=== PATIENT | female | born 1970 | race Caucasian/White ===

== ENCOUNTER 2019-06-24 13:50 | Emergency (ER) | payer OTHER, MEDICAID, SELFPAY ==
[2019-06-24] VITALS (9 sets, daily range): BP systolic 127–188; BP diastolic 60–87; PULSE 72–89; RESP 14–20; TEMP 36.8–37.4; O2SAT 98–100
--- NOTE | 2019-06-24 14:02 | ED.RECABL ---
HPI - Recheck/Abnormal Lab/Rx General Chief Complaint: Recheck/Abnormal Lab/Rx Stated Complaint: blood transfusion Time Seen by Provider: 06/24/19 14:00 Source: patient Mode of arrival: Ambulatory Limitations: no limitations History of Present Illness HPI narrative: Patient is a 49-year-old female. For the past several months has been complaining of fatigue and headache in generalized malaise. Has been seeing her primary doctor. She stated that initially they thought that it was depression. The min going up on her Effexor. In April she stopped the Effexor and then had withdrawal symptoms. She went back on it then tapered herself off. She states that her symptoms have not been improving at all. Last week she had blood drawn by her primary provider. She was called today patellar to come to the emergency department for blood transfusion. She has been taking nonsteroidal anti-inflammatories because of her headache. She is unsure as to how much but she does feel like his been every day. She has had some blood in her stool. Both bright red blood and dark colored stools. Has never had a colonoscopy in the past. She is also complaining of abnormal vaginal bleeding. She states that for the month of March and April and also currently she has been having vaginal bleeding. She is not on control. Has not seen food checkers and cashiers supervisor. She states that her primary doctor told her that was perimenopausal symptoms. She had a blood transfusion 1 time in the past. His when she was 17 years old after a . Related Data Home Medications Medication Instructions Recorded Confirmed albuterol sulfate 2 puff INHALATION Q4-6H PRN 06/24/19 06/24/19 buspirone 10 mg PO BID 06/24/19 06/24/19 venlafaxine 75 mg PO DAILY 06/24/19 Allergies Allergy/AdvReac Type Severity Reaction Status Date / Time No Known Drug Allergies Allergy Verified 06/24/19 16:14 Review of Systems Constitutional Constitutional: Reports fatigue, Denies fever(s), Reports headache(s), Reports lethargy and Reports malaise ENT Ears, Nose, Mouth, and Throat: Reports headache(s) Cardiovascular Cardiovascular: Denies chest pain Respiratory Respiratory: Denies cough Gastrointestinal Gastrointestinal: Denies abdominal pain, Reports hematochezia, Denies change in stool character, Denies nausea and Denies vomiting Genitourinary Genitourinary: Denies dysuria and Reports vaginal discharge Integumentary/Breasts Skin/Breast: Denies lesions and Denies rash Neurologic Neurologic: Denies behavioral changes and Reports headache(s) Psychiatric Psychiatric: Denies behavioral changes Endocrine Endocrine: Reports fatigue Hematologic/Lymphatic Hematologic/Lymphatic: Denies easy bleeding and Denies easy bruising Patient History Medical History Headache (Acute) Social History marital status: lives independently: Yes Exam Initial Vital Signs Initial Vital Signs: Vital Signs Temperature 98.2 F 06/24/19 13:57 Pulse Rate 89 06/24/19 13:57 Respiratory Rate 20 06/24/19 13:57 Blood Pressure 188/87 H 06/24/19 13:57 Pulse Oximetry 98 06/24/19 13:57 Const General: cooperative, comfortable and well developed HENMT Head: normal to inspection and normocephalic Resp Effort & Inspection: normal respiratory effort Auscultation: clear to auscultation bilaterally Cardio Rate: regular rate Rhythm: regular rhythm Pulses: radial pulses present GI Palpation: soft Skin Lesions: no lesions Rashes: no rashes Neuro General: alert, awake and oriented x3 Cognition: normal cognition Speech: speech normal Extrem General: normal to inspection and capillary refill normal Psych Appearance: grossly normal and well kempt Scores GCS Kirsty coma scale eye opening: Spontaneous Kirsty coma scale verbal response: Orientated [place] coma scale motor response: Obey commands [place] coma scale total score: 15 Course Orders Ordered: ED Orders 06/24/19 14:20 Complete Blood Count AUTO DIFF Stat Comprehensive Metabolic Panel Stat Packed Cells Stat Pathologist Review (for CBC) Stat Type and Screen Stat Vital Signs Vital signs: Vital Signs - 8 hr 06/24/19 13:57 06/24/19 16:25 06/24/19 16:40 Temperature 98.2 F 99.3 F 99.4 F Pulse Rate 89 85 86 Respiratory Rate 20 15 16 Blood Pressure 188/87 H 135/65 Blood Pressure [Right Arm] 127/66 Pulse Oximetry 98 98 MDM - Recheck/Abnormal Lab/Rx Lab Data Attestation: I reviewed the patient's lab results. Result diagrams: 06/24/19 14:20 02/10/20 14:20 Labs: Lab Results 06/24/19 06/24/19 06/24/19 Range/Units 14:20 14:20 14:20 WBC 11.7 H (4.5-11.0) X10^3/uL RBC 4.19 (4.0-5.2) X10^6/uL Hgb 7.0 L (12.0-16.0) g/dL Hct 24.8 L (36-46) % MCV 59.1 L (80-100) fL MCH 16.6 L (26-34) PG MCHC 28.1 L (30-36) % RDW 20.1 H (11.6-14.8) % Plt Count 646 H (150-400) X10^3/uL Neut % (Auto) 67.7 (50-75) % Lymph % (Auto) 19.5 L (25-40) % Mcduffie % (Auto) 9.2 (3-14) % Eos % (Auto) 1.4 L (2-4) % Baso % (Auto) 2.2 H (0-2) % Neut # (Auto) 7900 H (6947-6300) /uL Lymph # (Auto) 2300 (7378-5431) /uL Mcduffie # (Auto) 1100 H (0-900) /uL Eos # (Auto) 200 (0-450) /uL Baso # (Auto) 300 H (0-100) /uL RBC Morphology See below Polychromasia 2+ H Hypochromasia 3+ H Poikilocytosis 1+ H Anisocytosis 3+ H Microcytosis 3+ H Sodium 139 (137-145) mmol/L Potassium 4.0 (3.4-5.1) mmol/L Chloride 102 (98-107) mmol/L Carbon Dioxide 25 (22-32) mmol/L BUN 11 (7-17) mg/dL Creatinine 0.90 (0.52-1.04) mg/dL Estimated GFR > 60.0 (>60) mL/min BUN/Creatinine Ratio 12.2 (6-22) Glucose 96 (70-100) mg/dL Calcium 9.8 (8.4-10.2) mg/dL Total Bilirubin 0.4 (0.2-1.3) mg/dL AST 39 H (14-36) IU/L ALT 19 (<35) IU/L Alkaline Phosphatase 100 (38-126) U/L Total Protein 8.2 (6.3-8.2) g/dL Albumin 4.7 (3.5-5.0) g/dL Globulin 3.5 (1.7-4.1) g/dL Albumin/Globulin Ratio 1.3 (1.0-2.8) Blood Type A Negative Antibody Screen Negative Crossmatch See Detail MDM Narrative Medical decision making narrative: Patient is not tachycardic. Not hypotensive. Has had fatigue for some time now. She is also complaining of potentially some GI bleeding with bright red blood in potentially some dark colored stools. She has never had a colonoscopy. She is also complaining of abnormal heavy menstrual bleeding. She is currently having bleeding. Patient was anemic today. Had a discussion with the patient regarding this. We did discuss the risks and benefits of a blood transfusion to include allergic reactions and potential infections. We also discuss the potential improvement in her symptoms after receiving the blood products. This discussion was had with her at bedside. After this discussion the patient did opt to have the blood transfusion. 2 units of packed red blood cells were ordered. Patient received the 1st unit without any problems. Second unit ordered. Care turned over to Dr. Jose at change of shift follow-up after 2nd unit administered. Discharge Plan Departure Patient Disposition: Home Clinical Impression: Anemia, Abnormal vaginal bleeding Instructions: Anemia, DI for Blood Transfusion Activity Restrictions/Additional Instructions: I recommend that you talk with her primary doctor about referrals to see both gastroenterology/surgery to discuss a colonoscopy and also to food checkers and cashiers supervisor to discuss further workup of your vaginal bleeding. Also recommend that you continue with the iron that you have at home. Return to the emergency department for any new or worsening symptoms Prescriptions: No Action venlafaxine 75 mg capsule,extended release 24hr 75 mg PO DAILY RF: 0 buspirone 10 mg tablet 10 mg PO BID RF: 0 albuterol sulfate 90 mcg/actuation HFA aerosol inhaler 2 puff INHALATION Q4-6H PRN (Reason: asthma) RF: 0
[2019-06-24 14:51] LABS: Add Manual Diff / Slide Review NO; Basophils Absolute Auto 300 /uL (0-100); Basophils Percent Auto 2.2 % (0-2); Eosinophils Absolute Auto 200 /uL (0-450); Eosinophils Percent Auto 1.4 % (2-4); Hematocrit 24.8 % (36-46); Lymphocytes Absolute Auto 2300 /uL (1100-4500); Lymphocytes Percent Auto 19.5 % (25-40); Mean Corpuscular HGB Conc 28.1 % (30-36); Mean Corpuscular Hemoglobin 16.6 PG (26-34); Mean Corpuscular Volume 59.1 fL (80-100); Monocytes Absolute Auto 1100 /uL (0-900); Monocytes Percent Auto 9.2 % (3-14); Neutrophils Absolute Auto 7900 /uL (1500-7000); Neutrophils Percent Auto 67.7 % (50-75); Platelet Count 646 X10^3/uL (150-400); Red Blood Cell Count 4.19 X10^6/uL (4.0-5.2); Red Cell Distribution Width 20.1 % (11.6-14.8); White Blood Cell Count 11.7 X10^3/uL (4.5-11.0)
[2019-06-24 14:57] LABS: Alanine Aminotransferase 19 IU/L (<35); Albumin 4.7 g/dL (3.5-5.0); Albumin Globulin Ratio 1.3 (1.0-2.8); Alkaline Phosphatase 100 U/L (38-126); Aspartate Aminotransferase 39 IU/L (14-36); BUN Creatinine Ratio 12.2 (6-22); Bilirubin Total 0.4 mg/dL (0.2-1.3); Blood Urea Nitrogen 11 mg/dL (7-17); Calcium 9.8 mg/dL (8.4-10.2); Carbon Dioxide 25 mmol/L (22-32); Chloride 102 mmol/L (98-107); Estimated Glomerular Filt Rate > 60.0 mL/min (>60); Globulin 3.5 g/dL (1.7-4.1); Glucose 96 mg/dL (70-100); HEMOLYSIS < 15 (0-50); Sodium 139 mmol/L (137-145); Total Protein 8.2 g/dL (6.3-8.2)
[2019-06-24 15:11] LABS: Anisocytosis 3+; Hypochromasia 3+; Microcytosis 3+
[2019-06-24 15:12] LABS: Poikilocytosis 1+; Polychromasia 2+
--- NOTE | 2019-06-24 19:21 | PC.NURSE ---
safe handoff from ramona at bedside. Blood infusing. Patient denies needs at this time.
--- NOTE | 2019-06-24 19:59 | PC.NURSE ---
patient reports feeling much better post transfufion. She states she is not lightheaded or fatigued feeling when upright and walking. Patient ambulated self to restroom.
--- NOTE | 2019-06-24 21:02 | PC.NURSE ---
drawn by Mercedez dominguez
[2019-06-24 21:18] LABS: Hematocrit 29.5 % (36-46)
--- NOTE | 2019-06-24 22:02 | PC.NURSE ---
provider notified of resulted repeat H&H. Provider reviewed labs and od'd discharge.
== END 2019-06-24 22:06 | disposition home or self-care (01) ==
PROVIDERS: Emergency Medicine; Emergency Provider Emergency Medicine
DX: D64.9 Anemia, unspecified (principal); N93.9 Abnormal uterine and vaginal bleeding, unspecified
CPT/HCPCS: 36415; 36430; 80053; 85014; 85018; 85025; 86850; 86900; 86901; 99284; P9016

== ENCOUNTER 2019-07-05 07:47 | Day surgery (SDC) | payer OTHER, MEDICAID, SELFPAY ==
[2019-07-03 14:40] VITALS: BMI 28.8
[2019-07-05] VITALS (8 sets, daily range): BP systolic 121–152; BP diastolic 61–79; PULSE 60–77; RESP 13–20; TEMP 36.2–37.1; O2SAT 93–100; BMI 28.8
--- NOTE | 2019-07-05 | PATH_ITS ---
[facility] Accession Number: [id number] . 01 Material submitted: . PART A: endometrium - ENDOMETRIAL BIOPSY PART B: uterine adnexa - PROLAPSED UTERINE FIBROID . 02 Diagnosis: A. Endometrium, Biopsy: Secretory endometrium with no diagnostic abnormality. Negative for atypical hyperplasia or malignancy. . B. Prolapsed Uterine Fibroid, Excision: Compatible with leiomyoma. Adenomyosis. Negative for atypical hyperplasia or malignancy. MRV 07/08/2019 1326 Local . 02 Electronically signed: . Abdelrahman Petty MD, PhD, Pathologist NPI- [id number] . 01 Gross description: . (A) Received in formalin, labeled endometrial biopsy, are multiple fragments of red-brown tissue (2.3 x 2.0 x 0.3 cm in aggregate). Filtered and entirely submitted in cassette A1. (B) Received in formalin, labeled prolapsed uterine fibroid, is a baca sanchez, firm resected nodule (7 g, 3.2 x 2.5 x 1.2 cm) with a sanchez-white, solid, cystic cut surface. The cavities (0.1-0.3 cm) contain clear, colorless, gelatinous, and brown solid soft material. The resection margin is inked blue. [employer] serial sections submitted in cassettes B1 and B2. ([id number]) /ROBIN 07/06/2019 0935 Local . 02 Pathologist provided ICD-10: N92.0, D25.9, N80.0 . 02 CPT . 044061, 616916 Performed at: 01 [facility] [address] [place] [address] [address] [facility], [place], [place] [id number] MD Vinicio Rushing MD Phone: [phone] Performed at: 02 [facility] [place] [address] [place] [id number] MD Fernanda Burns MD Phone: [phone]
[2019-07-05] MEDS: LACTATED RINGERS 1,000 ML 100 ML IV (08:41)
[2019-07-05 08:46] LABS: Add Manual Diff / Slide Review NO; Basophils Absolute Auto 200 /uL (0-100); Basophils Percent Auto 2.1 % (0-2); Eosinophils Absolute Auto 400 /uL (0-450); Eosinophils Percent Auto 4.4 % (2-4); Hematocrit 38.6 % (36-46); Hemoglobin 12.1 g/dL (12.0-16.0); Lymphocytes Absolute Auto 1700 /uL (1100-4500); Lymphocytes Percent Auto 21.8 % (25-40); Mean Corpuscular HGB Conc 31.3 % (30-36); Mean Corpuscular Hemoglobin 22.3 PG (26-34); Mean Corpuscular Volume 71.2 fL (80-100); Monocytes Absolute Auto 700 /uL (0-900); Monocytes Percent Auto 8.6 % (3-14); Neutrophils Absolute Auto 5000 /uL (1500-7000); Neutrophils Percent Auto 63.1 % (50-75); Platelet Count 550 X10^3/uL (150-400); Red Blood Cell Count 5.42 X10^6/uL (4.0-5.2); White Blood Cell Count 7.9 X10^3/uL (4.5-11.0)
--- NOTE | 2019-07-05 08:50 | PM.PREOP ---
Pre-operative Note Interval Note History & Physical reviewed/Exam performed by Physician: Yes Changes to H&P: No
[2019-07-05 09:02] LABS: Anisocytosis 2+; Dimorphic RBC 2
--- NOTE | 2019-07-05 10:03 | SUR.OPER ---
Lithotomy on padded OR bed. Summit View Pad Positioner under torso. Head on pillow, arms padded and tucked at sides. Legs secured in padded yellow fins stirrups.
--- NOTE | 2019-07-05 10:39 | P.OP_ITS ---
Operative Date/Time/Diagnoses Date of procedure: 07/05/19 Time of procedure: 10:39 Pre-op diagnosis: prolapsing uterine fibroid Post-op diagnosis: same Procedure & Clinicians Procedure: Exam under anesthesia, operative hysteroscopy, endometrial biopsy, insertion of Mirena IUD Same procedure as scheduled: No Indications: Abnormal uterine bleeding, prolapsing uterine fibroid. Surgeon: Eliza Almanzar Pastry Assistant: Sheryl Vargas Anesthesia Type: General Operative Notes Findings: 3.5 cm uterine fibroid prolapsing through the cervix, attached to posterior lower uterine segment by long vascular stalk. Fluffy benign-appearing endometrium throughout rest endometrial cavity, though no signs of malignancy. Otherwise normal vulva, vagina, cervix, uterus. Closure Type: not applicable Specimen(s): other (Uterine fibroid, endometrial biopsy) Estimated Blood Loss (mL): 25 Procedure in detail: After proper consents were obtained, the patient was taken to the operating room. General anesthesia was obtained and she was placed in the dorsal lithotomy position and prepped and draped in the usual sterile fashion. An exam under anesthesia was obtained, and the fibroid was palpably free of attachment to the cervix. The bladder was straight cathed, and a weighted retractor inserted into the vagina. The prolapsing fibroid was visualized, and grasped with a single-tooth tenaculum. A Bovie was used to amputate the bulk of the fibroid to allow for visualization of the entire c ervix. The cervix was grasped with a single-tooth tenaculum on the anterior lip and gently dilated to 8 mm with Hegar dilators, and the operative hysteroscope inserted gently into the uterus. The above findings were visualized, and the loop cautery device used to amputate the rest of the stalk of the fibroid and cauterize the area of attachment. Once hemostasis was achieved, the hysteroscope was removed from the uterus. As previously discussed with the patient, an endometrial biopsy rather than dilation curettage was performed. A Mirena IUD was then inserted into the uterus using that insertion device in the usual fashion. The uterus had sounded to 9 cm, and the strings were cut to 2 cm. The single-tooth tenaculum was removed from the anterior lip of the cervix, and spontaneous hemostasis was visualized at the tenaculum sites. The weighted speculum was removed from the vagina. The patient had mild scant uterine bleeding. Patient was taken to the PACU in stable condition. All counts were correct. IV fluids: 500 cc Fluid deficit: 150 cc of sorbitol Urine output: 25 cc of clear urine at the beginning of the case. Complications: none Post-operative Condition: stable Disposition: PACU Plan for aftercare: Nothing in the vagina for 2 weeks. Patient and spouse counseled on postoperative precautions for return, including heavy uterine bleeding. Patient to follow up in clinic in 1-2 weeks.
--- NOTE | 2019-07-05 11:38 | SUR.PHASEII ---
pt denies any pain or discomfort. No complaints voiced. pt d/abbe with . Pt very pleasant and cooperative.
== END 2019-07-05 11:48 | disposition home or self-care (01) ==
PROVIDERS: PCP Family Medicine Geriatric Medicine; Referring Provider Obstetrics & Gynecology; Visit Provider Obstetrics & Gynecology
PROC: 0UT94ZL Resection of Uterus, Supracervical, Percutaneous Endoscopic Approach (ICD-10-PCS; CPT 58561; principal; 2019-07-05 09:15)
DX: D25.9 Leiomyoma of uterus, unspecified (principal); Z30.430 Encounter for insertion of intrauterine contraceptive device; N80.0 Endometriosis of uterus
CPT/HCPCS: 58561; 58300; 85025; 86850; 86900; 86901; J1100; J1885; J2250; J2405; J2704; J3010; J7298

== ENCOUNTER 2019-07-06 09:08 | Emergency (ER) | payer OTHER, MEDICAID, SELFPAY ==
[2019-07-06] VITALS (7 sets, daily range): BP systolic 131–181; BP diastolic 61–84; PULSE 59–84; RESP 15–17; TEMP 36.4–36.8; O2SAT 98–100
--- NOTE | 2019-07-06 10:27 | ED_ITS ---
HPI - Fever General Chief Complaint: Fever Stated Complaint: post surgery, fever, vomiting, sent by provider Time Seen by Provider: 07/06/19 09:10 Source: patient Mode of arrival: Ambulatory Limitations: no limitations History of Present Illness HPI Narrative: 41-year-old female nonsmoker with history of asthma presents with a chief complaint of about 12 hours of fever, chills, nausea, vomiting and diarrhea as well as crampy pelvic pain. Yesterday she had a gynecologic procedure for removal of fibroid and insertion of IUD. She contacted her surgeon and was directed to the emergency department for evaluation. Her pain is worse when she moves and improves with rest. She admits to occasional spotting but no significant vaginal bleeding or discharge. She has no dysuria, frequency or urgency MD complaint: fever Onset (ago): hour(s) Maximum Temperature: 100.6 F Temperature Source: oral Context: recent procedure Associated symptoms: chills, myalgias, headache, nausea, vomiting and diarrhea Related Data Home Medications Medication Instructions Recorded Confirmed albuterol sulfate 2 puff INHALATION Q4-6H PRN 06/24/19 06/26/19 buspirone 10 mg PO BID 06/24/19 06/26/19 venlafaxine 75 mg PO DAILY 06/24/19 06/26/19 lorazepam 0.5 mg tablet 0.5 mg PO DAILY PRN 06/26/19 06/26/19 Previous Rx's Medication Instructions Recorded doxycycline hyclate 100 mg PO BID #28 tab 07/06/19 metronidazole [Flagyl] 500 mg PO BID 14 Days #28 tab 07/06/19 Allergies Allergy/AdvReac Type Severity Reaction Status Date / Time No Known Drug Allergies Allergy Verified 06/26/19 13:21 Review of Systems Constitutional Constitutional: Reports chills, Denies fatigue, Reports fever(s), Denies frequent falls, Denies lethargy and Denies weakness Eyes Eyes: Denies change in vision, Denies eye discharge, Denies irritation and Denies loss of vision ENT Ears, Nose, Mouth, and Throat: Denies change in voice, Denies dizziness, Denies neck pain, Denies sore throat and Denies throat swelling Cardiovascular Cardiovascular: Denies chest pain, Denies irregular heart rhythm, Denies lig htheadedness, Denies palpitations, Denies dyspnea, Denies dyspnea on exertion and Denies orthopnea Respiratory Respiratory: Denies cough, Denies dyspnea, Denies dyspnea on exertion and Denies wheezing Gastrointestinal Gastrointestinal: Denies abdominal pain, Denies change in bowel habits, Reports diarrhea, Reports nausea and Reports vomiting Genitourinary Genitourinary: Denies hematuria, Denies flank pain, Denies urinary incontinence and Denies urinary urgency Musculoskeletal Musculoskeletal: Denies back pain, Denies muscle weakness, Denies neck pain, Denies numbness and Denies tingling Integumentary/Breasts Skin/Breast: Denies pruritus, Denies erythema, Denies rash and Denies wounds Neurologic Neurologic: Denies behavioral changes, Denies confusion, Denies dizziness, Denies frequent falls, Denies loss of vision, Denies numbness, Denies tingling and Denies weakness Psychiatric Psychiatric: Denies anxiety, Denies behavioral changes, Denies confusion, Denies depression, Denies homicidal ideation and Denies suicidal ideation Endocrine Endocrine: Denies fatigue, Denies flushing and Denies palpitations Hematologic/Lymphatic Hematologic/Lymphatic: Denies easy bruising Allergic/Immunologic Allergic/Immunologic: Denies urticaria, Denies throat swelling and Denies wheezi ng Patient History Medical History Depression (Acute) Headache (Acute) Menorrhagia (Acute) Surgical History Previous section (Acute) Social History marital status: household members: spouse lives independently: Yes Smoking Status: Never smoker alcohol intake: never Smoking Status: Never smoker Exam Narrative Exam Narrative: GENERAL: [41] year old patient appears stated age. Well- nourished, well-developed patient, in mild distress. HEAD: Atraumatic. Normocephalic. EYES: Pupils equal round and reactive. Extraocular motions intact. No scleral icterus. No injection or drainage. ENT: Nose without bleeding, purulent drainage. Throat without erythema, tonsillar hypertrophy or exudate. Airway patent. NECK: Trachea midline. Non tender CARDIOVASCULAR: Regular rate and rhythm without murmurs, gallops, or rubs. RESPIRATORY: Clear to auscultation. Breath sounds equal bilaterally. No wheezes, rales, or rhonchi. GASTROINTESTINAL: Abdomen soft, mild suprapubic tenderness, nondistended. EXTREMITIES: No edema or joint tenderness. BACK: Nontender without deformity or crepitance. No flank tenderness. NEURO: AOx3. SKIN: No rash or erythema of visible areas Initial Vital Signs Initial Vital Signs: Vital Signs Temperature 98.2 F 07/06/19 10:10 Pulse Rate 84 07/06/19 10:10 Respiratory Rate 16 07/06/19 10:10 Blood Pressure 181/84 H 07/06/19 10:10 Pulse Oximetry 99 07/06/19 10:10 Course Course Course Narrative: Call to patient's control and recovery special tactics nearly immediately upon patient arrival, we discussed the workup and a CT of abdomen and pelvis with IV contrast is requested. Orders Ordered: ED Orders 07/06/19 10:34 Blood Culture Stat 07/06/19 10:38 CT abdomen pelvis w con Stat 07/06/19 10:40 Basic Metabolic Panel Stat Complete Blood Count AUTO DIFF Stat Lactate (Lactic Acid) Stat 07/06/19 13:05 Urine Microscopic Stat Discontinued Medications Sodium Chloride (Normal Saline 0.9%) 1,000 mls @ 1,000 mls/hr IV BOLUS ONE Stop: 07/06/19 11:33 Last Infusion: 07/06/19 12:54 Dose: 0 mls/hr Documented by: Admin: 07/06/19 11:16 Dose: 1,000 mls/hr Documented by: LUCIE Ceftriaxone Sodium/Dextrose (Rocephin) 1 gm in 50 mls @ 100 mls/hr IV NOW ONE Stop: 07/06/19 11:07 Last Infusion: 07/06/19 12:54 Dose: 0 mls/hr Documented by: Admin: 07/06/19 11:27 Dose: 100 mls/hr Documented by: FELISHA Ketorolac Tromethamine (Toradol) 15 mg IV NOW ONE Stop: 07/06/19 10:41 Last Admin: 07/06/19 11:27 Dose: 15 mg Documented by: FELISHA Ondansetron HCl (Zofran) 4 mg IV Q4HR PRN PRN Reason: Nausea And Vomiting Last Admin: 07/06/19 11:27 Dose: 4 mg Documented by: FELISHA Vital Signs Vital signs: Vital Signs - 8 hr 07/06/19 11:05 07/06/19 12:10 07/06/19 12:11 Temperature 97.6 F Pulse Rate 63 63 59 L Respiratory Rate 16 16 Blood Pressure [Right Arm] 145/66 H 145/66 H 142/68 H Pulse Oximetry 100 100 100 07/06/19 12:30 07/06/19 13:01 07/06/19 14:10 Temperature Pulse Rate 60 64 61 Respiratory Rate 17 15 15 Blood Pressure [Right Arm] 132/61 147/68 H 131/66 Pulse Oximetry 100 100 98 MDM - Fever Lab Data Result diagrams: 07/06/19 10:40 07/06/19 10:40 Labs: Lab Results 07/06/19 07/06/19 07/06/19 Range/Units 10:40 10:40 10:40 WBC 14.8 H D (4.5-11.0) X10^3/uL RBC 4.84 (4.0-5.2) X10^6/uL Hgb 10.9 L (12.0-16.0) g/dL Hct 34.8 L (36-46) % MCV 71.8 L (80-100) fL MCH 22.5 L (26-34) PG MCHC 31.4 (30-36) % RDW 34.9 H (11.6-14.8) % Plt Count 553 H (150-400) X10^3/uL Neut % (Auto) 76.1 H (50-75) % Lymph % (Auto) 14.4 L (25-40) % [place] % (Auto) 8.0 (3-14) % Eos % (Auto) 0.2 L (2-4) % Baso % (Auto) 1.3 (0-2) % Neut # (Auto) 27062 H (6782-0366) /uL Lymph # (Auto) 2100 (2362-9976) /uL [place] # (Auto) 1200 H (0-900) /uL Eos # (Auto) 0 (0-450) /uL Baso # (Auto) 200 H (0-100) /uL RBC Morphology See below Hypochromasia 2+ H Poikilocytosis 2+ H Anisocytosis 3+ H Target Cells 1+ H Tear Drop Cells 2+ H Sodium 143 (137-145) mmol/L Potassium 3.5 (3.4-5.1) mmol/L Chloride 108 H (98-107) mmol/L Carbon Dioxide 22 (22-32) mmol/L BUN 7 (7-17) mg/dL Creatinine 0.50 L (0.52-1.04) mg/dL Estimated GFR > 60.0 (>60) mL/min BUN/Creatinine Ratio 14.0 (6-22) Glucose 95 (70-100) mg/dL Lactate 1.5 (0.7-2.1) mmol/L Calcium 9.7 (8.4-10.2) mg/dL Urine RBC (0-5/HPF) Urine WBC (0-5/HPF) Ur Squamous Epith Cells (0-5/HPF) Urine Bacteria (None) Ur Culture Indicated? 07/06/19 Range/Units 13:05 WBC (4.5-11.0) X10^3/uL RBC (4.0-5.2) X10^6/uL Hgb (12.0-16.0) g/dL Hct (36-46) % MCV (80-100) fL MCH (26-34) PG MCHC (30-36) % RDW (11.6-14.8) % Plt Count (150-400) X10^3/uL Neut % (Auto) (50-75) % Lymph % (Auto) (25-40) % [place] % (Auto) (3-14) % Eos % (Auto) (2-4) % Baso % (Auto) (0-2) % Neut # (Auto) (0416-5803) /uL Lymph # (Auto) (6427-4564) /uL [place] # (Auto) (0-900) /uL Eos # (Auto) (0-450) /uL Baso # (Auto) (0-100) /uL RBC Morphology Hypochromasia Poikilocytosis Anisocytosis Target Cells Tear Drop Cells Sodium (137-145) mmol/L Potassium (3.4-5.1) mmol/L Chloride (98-107) mmol/L Carbon Dioxide (22-32) mmol/L BUN (7-17) mg/dL Creatinine (0.52-1.04) mg/dL Estimated GFR (>60) mL/min BUN/Creatinine Ratio (6-22) Glucose (70-100) mg/dL Lactate (0.7-2.1) mmol/L Calcium (8.4-10.2) mg/dL Urine RBC 5-10/hpf H (0-5/HPF) Urine WBC 5-10/hpf H (0-5/HPF) Ur Squamous Epith Cells 10-30 /hpf H (0-5/HPF) Urine Bacteria None seen (None) Ur Culture Indicated? Cult not indicated Urine Dip Bedside Urine Glucose Negative Bedside Urine Bilirubin - Negative Bedside Urine Ketone - Negative Urine Specific [place] 1.005 Bedside Urine Occult Blood +++ Bedside Urine pH 7.0 Bedside Urine Protein +/- 15 Bedside Urine Urobilinogen - Negative Bedside Urine Nitrite - Negative Bedside Urine Leukocytes +/- [address] scan - abdomen/pelvis: Radiologist's Impression: 19 Sanjeve Bustillo DO Find Patient Imaging - Mimi Sanford 49 F 1970 ACTIVITY DATE EXAM STATUS AUTHOR 07/06/19 10:38 [place] [address] [place] Scan Report Signed Patient: Mimi Sanford [facility]#: [id number] : 1970Acct:[id number] Age/Sex: 49 / FDate of Service: 07/06/19 Loc: ED Accession Number: [id number] Procedure: CT abdomen pelvis w con Ordering Provider: Sanjeev Bustillo D.O. PROCEDURE: CT ABDOMEN PELVIS W CON INDICATIONS: pain, fever, chills, pain, procedure yesterday TECHNIQUE: After the administration of oral and intravenous contrast, 5 mm thick sections acquired from the diaphragms to the symphysis. 5 mm thick coronal and sagittal reformats were performed. For radiation dose reduction, the following was used: automated exposure control, adjustment of mA and/or kV according to patient size. COMPARISON: [facility], US, US PELVIC COMPLETE, 06/26/2019, 13:54. FINDINGS: Image quality: Diagnostic. ABDOMEN: Lung bases: Lung bases are clear. Heart size is normal. Solid organs: Liver is normal in size and enhancement. Gallbladder is not enlarged or adequately evaluated. However, there is questionable nodularity to the wall of the gallbladder. Biliary system is non-dilated. Pancreas enhances normally. Spleen is normal in size and enhancement. No adrenal nodules. Kidneys are normal in size and enhancement, without hydronephrosis. Peritoneum and bowel: The stomach is unremarkable. The small bowel loops are nondilated. A normal amount of stool seen within the colon. The appendix is well- visualized and normal. No free fluid a left ventricular collection is seen within the abdomen. No free air is evident. Nodes and vessels: No retroperitoneal or mesenteric adenopathy. Aorta and inferior vena cava are normal in caliber. Mild aortic atherosclerosis is present. There is also iliac artery atherosclerosis. Bones: No acute fracture or suspicious osseous lesion is identified. PELVIS: Genitourinary: Bladder wall thickness is normal. The uterus and ovaries are not enlarged. However, they are not well evaluated on CT. An intrauterine contraceptive device is identified, which be appropriate lead position within the endometrial cavity. A small amount of fluid is contained within the endometrial cavity. An exophytic lesion along the posterior aspect of the uterus is present that measures up to 3.2 cm. The ovaries are not enlarged. A dominant follicle in the left ovary measures 1.4 cm. Miscellaneous: No inguinal hernias or adenopathy. No free fluid or loculated fluid collection is appreciated. There is no free air. Age-appropriate degenerative changes of the lumbar spine are most pronounced at the lumbosacral junction. Bones: No suspicious bony lesions. No vertebral body compression fractures. IMPRESSION: 1. The intrauterine contraceptive device appears to be a properly positioned within the endometrial cavity. 2. Minimal fluid versus blood within the endometrial cavity may be related to recent IUD placement. Please correlate clinically. 3. No intraperitoneal fluid collections or free fluid. 4. Moderate-sized subserosal/exophytic fibroid on the posterior uterus. 5. Slight nodular appearance to the wall of the gallbladder is nonspecific. A gallbladder ultrasound is recommended on a non-emergent basis to exclude the possibility of adenomyomatosis. Dictated by: Emile Kraft M.D. on 07/06/2019 at 11:13 Approved by: Emile Kraft M.D. on 07/06/2019 at 11:22 Discharge Plan Departure Patient Disposition: Home Clinical Impression: Pelvic pain, Acute pelvic inflammatory disease (PID) Discharge Date/Time: 07/06/19 14:30 Instructions: DI for Pelvic Inflammatory Disease Activity Restrictions/Additional Instructions: *You have been diagnosed with [ nausea, vomiting, diarrhea and possible pelvic inflammatory disease ] *What to do: *Take medications as directed: prescriptions sent to [facility] in [place] at your request *Follow up with your primary care provider in 2-3 days, call for an appointment. Let them know you were seen in the Emergency Department and that we ask that you be seen in follow up *Return to ER if you should have any new, worsening or concerning symptoms Prescriptions: New doxycycline hyclate 100 mg tablet 100 mg PO BID Qty: 28 RF: 0 metronidazole [Flagyl] 500 mg tablet 500 mg PO BID 14 Days Qty: 28 RF: 0 No Action lorazepam 0.5 mg tablet 0.5 mg PO DAILY PRNRF: 0 venlafaxine 75 mg capsule,extended release 24hr 75 mg PO DAILY RF: 0 buspirone 10 mg tablet 10 mg PO BID RF: 0 albuterol sulfate 90 mcg/actuation HFA aerosol inhaler 2 puff INHALATION Q4-6H PRN (Reason: asthma) RF: 0 Referrals: Susy Stanley MD [Primary Care Provider] -
--- NOTE | 2019-07-06 10:36 | PC.NURSE ---
s/p cyst removal in cervix and uterus,and IUD insertion. developed fever,nausea,vomiting,diarrhea. denies chills. with chronic headache,but now worsen, denies visual changes.
--- NOTE | 2019-07-06 10:38 | DI.CT.S_ITS ---
PROCEDURE: CT ABDOMEN PELVIS W CON INDICATIONS: pain, fever, chills, pain, procedure yesterday TECHNIQUE: After the administration of oral and intravenous contrast, 5 mm thick sections acquired from the diaphragms to the symphysis. 5 mm thick coronal and sagittal reformats were performed. For radiation dose reduction, the following was used: automated exposure control, adjustment of mA and/or kV according to patient size. COMPARISON: [facility], US, US PELVIC COMPLETE, 06/26/2019, 13:54. FINDINGS: Image quality: Diagnostic. ABDOMEN: Lung bases: Lung bases are clear. Heart size is normal. Solid organs: Liver is normal in size and enhancement. Gallbladder is not enlarged or adequately evaluated. However, there is questionable nodularity to the wall of the gallbladder. Biliary system is non-dilated. Pancreas enhances normally. Spleen is normal in size and enhancement. No adrenal nodules. Kidneys are normal in size and enhancement, without hydronephrosis. Peritoneum and bowel: The stomach is unremarkable. The small bowel loops are nondilated. A normal amount of stool seen within the colon. The appendix is well-visualized and normal. No free fluid a left ventricular collection is seen within the abdomen. No free air is evident. Nodes and vessels: No retroperitoneal or mesenteric adenopathy. Aorta and inferior vena cava are normal in caliber. Mild aortic atherosclerosis is present. There is also iliac artery atherosclerosis. Bones: No acute fracture or suspicious osseous lesion is identified. PELVIS: Genitourinary: Bladder wall thickness is normal. The uterus and ovaries are not enlarged. However, they are not well evaluated on CT. An intrauterine contraceptive device is identified, which be appropriate lead position within the endometrial cavity. A small amount of fluid is contained within the endometrial cavity. An exophytic lesion along the posterior aspect of the uterus is present that measures up to 3.2 cm. The ovaries are not enlarged. A dominant follicle in the left ovary measures 1.4 cm. Miscellaneous: No inguinal hernias or adenopathy. No free fluid or loculated fluid collection is appreciated. There is no free air. Age-appropriate degenerative changes of the lumbar spine are most pronounced at the lumbosacral junction. Bones: No suspicious bony lesions. No vertebral body compression fractures. IMPRESSION: 1. The intrauterine contraceptive device appears to be a properly positioned within the endometrial cavity. 2. Minimal fluid versus blood within the endometrial cavity may be related to recent IUD placement. Please correlate clinically. 3. No intraperitoneal fluid collections or free fluid. 4. Moderate-sized subserosal/exophytic fibroid on the posterior uterus. 5. Slight nodular appearance to the wall of the gallbladder is nonspecific. A gallbladder ultrasound is recommended on a non-emergent basis to exclude the possibility of adenomyomatosis. Dictated by: Emile Kraft M.D. on 07/06/2019 at 11:13 Approved by: Emile Kraft M.D. on 07/06/2019 at 11:22
[2019-07-06] MEDS: SODIUM CHLORIDE 0.9% 1,000 ML 1000 ML IV (11:16)
[2019-07-06] MEDS: ONDANSETRON 4 MG/2 ML INJ IV (11:27)
[2019-07-06] MEDS: KETOROLAC 60 MG/2 ML VIAL 15 MG IV (11:27)
[2019-07-06] MEDS: CEFTRIAXONE 1 GM/50 ML FROZ.PIGGY IV (11:27)
[2019-07-06 11:32] LABS: Lactate (Lactic Acid) 1.5 mmol/L (0.7-2.1)
[2019-07-06 11:33] LABS: Blood Urea Nitrogen 7 mg/dL (7-17); Calcium 9.7 mg/dL (8.4-10.2); Carbon Dioxide 22 mmol/L (22-32); Chloride 108 mmol/L (98-107); Estimated Glomerular Filt Rate > 60.0 mL/min (>60); Glucose 95 mg/dL (70-100); HEMOLYSIS < 15 (0-50); Potassium 3.5 mmol/L (3.4-5.1); Sodium 143 mmol/L (137-145)
[2019-07-06 11:39] LABS: Add Manual Diff / Slide Review NO; Basophils Absolute Auto 200 /uL (0-100); Basophils Percent Auto 1.3 % (0-2); Eosinophils Absolute Auto 0 /uL (0-450); Eosinophils Percent Auto 0.2 % (2-4); Hematocrit 34.8 % (36-46); Hemoglobin 10.9 g/dL (12.0-16.0); Lymphocytes Absolute Auto 2100 /uL (1100-4500); Lymphocytes Percent Auto 14.4 % (25-40); Mean Corpuscular HGB Conc 31.4 % (30-36); Mean Corpuscular Hemoglobin 22.5 PG (26-34); Mean Corpuscular Volume 71.8 fL (80-100); Monocytes Absolute Auto 1200 /uL (0-900); Neutrophils Absolute Auto 11200 /uL (1500-7000); Neutrophils Percent Auto 76.1 % (50-75); Platelet Count 553 X10^3/uL (150-400); Red Blood Cell Count 4.84 X10^6/uL (4.0-5.2); Red Cell Distribution Width 34.9 % (11.6-14.8); White Blood Cell Count 14.8 X10^3/uL (4.5-11.0)
[2019-07-06 12:32] LABS: Anisocytosis 3+; Poikilocytosis 2+; Tear Drop Cells 2+
[2019-07-06 12:33] LABS: Hypochromasia 2+; Target Cells 1+
[2019-07-06 13:49] LABS: Bacteria Urine None Seen
--- NOTE | 2019-07-06 14:11 | PM.CN ---
History of Present Illness Consult details Date Patient Seen: 07/06/19 Time Patient Seen: 14:12 Chief complaint: post surgery, fever, vomiting, sent by provider Reason for consult: 24 hours s/p hysteroscopy Requesting provider: Sanjeev Bustillo Narrative: This patient is a 49-year-old para 1, 24 hour status post operative hysteroscopy for prolapsing uterine fibroid with endometrial biopsy and placement of Mirena IUD at end of procedure. The procedure was uncomplicated with no signs of perforation, the patient recovered appropriately went home. However, the patient reports that early this morning, she woke up feeling generally unwell, with nausea and 1 bout of emesis. She also reports diarrhea and 1 low-grade fever at home. The patient denies significant vaginal bleeding, ongoing fevers or chills, abdominal pain, myalgias, or ongoing GI complaints in the emergency room. The patient has a history otherwise significant for thyroid derangement, and a known history of hypertension evident at prior clinic visits. Meds Home Medications and Allergies Home Medications Medication Instructions Recorded Confirmed Type albuterol sulfate 2 puff INHALATION Q4-6H PRN 06/24/19 06/26/19 History buspirone 10 mg PO BID 06/24/19 06/26/19 History venlafaxine 75 mg PO DAILY 06/24/19 06/26/19 History lorazepam 0.5 mg tablet 0.5 mg PO DAILY PRN 06/26/19 06/26/19 History doxycycline hyclate 100 mg PO BID #28 tab 07/06/19 Rx metronidazole [Flagyl] 500 mg PO BID 14 Days #28 tab 07/06/19 Rx Allergies Allergy/AdvReac Type Severity Reaction Status Date / Time No Known Drug Allergies Allergy Verified 06/26/19 13:21 Review of Systems Constitutional Constitutional: Reports system reviewed and no additional complaints, except as documented Cardiovascular Cardiovascular: Reports system reviewed; no additional complaints, except as documented Respiratory Respiratory: Reports system reviewed and no additional complaints, except as documented Gastrointestinal Gastrointestinal: Reports as per HPI Genitourinary Genitourinary: Reports as per HPI Comments: Mild spotting and cramping Exam Vital Signs (past 8 hours): - 07/06/19 10:10 07/06/19 12:10 Temperature 98.2 F 97.6 F Pulse Rate 84 63 Respiratory Rate 16 Blood Pressure 181/84 H Blood Pressure [Right Arm] 145/66 H Pulse Oximetry 99 100 Oxygen Delivery Method Room Air Const General: cooperative, healthy appearing, comfortable and well groomed Other: Patient sitting in chair in your room during consult, has changed back in the street clothes. GI Inspection: non-distended Palpation: soft, No guarding and No tender Other: Patient declines exam. Skin General: no rashes or lesions noted Objective Labs Result Diagrams: 07/06/19 10:40 07/06/19 10:40 Labs: Laboratory Results - last 24 hr 07/06/19 07/06/19 07/06/19 10:40 10:40 10:40 WBC 14.8 H D RBC 4.84 Hgb 10.9 L Hct 34.8 L MCV 71.8 L MCH 22.5 L MCHC 31.4 RDW 34.9 H Plt Count 553 H Neut % (Auto) 76.1 H Lymph % (Auto) 14.4 L [place] % (Auto) 8.0 Eos % (Auto) 0.2 L Baso % (Auto) 1.3 Neut # (Auto) 65194 H Lymph # (Auto) 2100 [place] # (Auto) 1200 H Eos # (Auto) 0 Baso # (Auto) 200 H RBC Morphology See below Hypochromasia 2+ H Poikilocytosis 2+ H Anisocytosis 3+ H Target Cells 1+ H Tear Drop Cells 2+ H Sodium 143 Potassium 3.5 Chloride 108 H Carbon Dioxide 22 BUN 7 Creatinine 0.50 L Estimated GFR > 60.0 BUN/Creatinine Ratio 14.0 Glucose 95 Lactate 1.5 Calcium 9.7 Assessment & Plan Assessment & Plan narrative: At the time of the consult, the patient reports feeling much improved status post IV fluids and an IV dose of Rocephin. The patient appears well, has changed into her street clothes and declines further exam, and is eager for discharge. Her evaluation is significant only for an elevated white blood cell count with a left shift, with abdominal CT scan showing no signs of uterine perforation, ongoing bleeding, or bowel or bladder injury, with a properly placed IUD. Although the patient is otherwise well appearing, in the setting of surgery 24 hours ago, we discussed that we cannot definitively rule out endometritis and that my inclination is to treat endometritis on an outpatient basis. We discussed that current ACOG and CDC guidelines for endometritis or PID include the 1 time dose of IV Rocephin she has received, with p.o. doxycycline and Flagyl for 14 days. We discussed the current recommendations for PID do not include removal of her IUD, though specific postoperative recommendations are slim to none. The patient is hesitant to remove her IUD given that her heavy menses cause her to need emergent blood transfusion, and we discussed the risk of requiring replacement at a later date versus the risk that leaving it in situ will allow a nidus for infection. The patient and her vocalized understanding, and would like to leave her IUD in and treat with outpatient antibiotics. We discussed precautions for worsening infection requiring return, including abdominal pain, fevers and chills, weakness, return of GI complaints, increased bleeding or vaginal discharge, muscle aches, or any other concerning symptoms. I encouraged the patient to call the answering service or come in immediately if further symptoms developed. We also discussed the disulfiram like reaction from Flagyl, and the patient reports that she does not drink alcohol.
[2019-07-06 14:12] LABS: Culture Indicated Urine Cult Not Indicated; RBC Urine 5-10/HPF (0-5/HPF); Squamous Epithelial Cell Urine 10-30 /HPF (0-5/HPF); WBC Urine 5-10/HPF (0-5/HPF)
--- NOTE | 2019-07-06 19:03 | PC.NURSE ---
called and stated that they picked up 2 antibiotics, and dr. francis told them he would sent for [facility] script. did not happen, so wanted me to call in [facility] to [facility]. spoke with dr. francis. zofran 4mg odt q 4 hours prn #20. message on pharmacy phone.
== END 2019-07-06 14:30 | disposition home or self-care (01) ==
PROVIDERS: Emergency Provider Emergency Medicine; PCP Family Medicine Geriatric Medicine
DX: R10.2 Pelvic and perineal pain (principal); N73.9 Female pelvic inflammatory disease, unspecified; R11.2 Nausea with vomiting, unspecified; R19.7 Diarrhea, unspecified; R50.9 Fever, unspecified
CPT/HCPCS: 36415; 74177; 80048; 81003; 81015; 83605; 85025; 87040; 96365; 96375; 99284; 99285; J1885; J2405; Q9967

== ENCOUNTER → 2019-07-22 15:26 | Outpatient (CLI) | payer OTHER, MEDICAID, SELFPAY ==
[2019-07-22 17:46] LABS: Add Manual Diff / Slide Review NO; Basophils Absolute Auto 100 /uL (0-100); Basophils Percent Auto 1.5 % (0-2); Eosinophils Absolute Auto 200 /uL (0-450); Eosinophils Percent Auto 2.6 % (2-4); Hematocrit 37.2 % (36-46); Hemoglobin 11.8 g/dL (12.0-16.0); Lymphocytes Absolute Auto 1500 /uL (1100-4500); Lymphocytes Percent Auto 16.6 % (25-40); Mean Corpuscular HGB Conc 31.6 % (30-36); Mean Corpuscular Hemoglobin 23.4 PG (26-34); Mean Corpuscular Volume 74.1 fL (80-100); Monocytes Absolute Auto 800 /uL (0-900); Monocytes Percent Auto 8.4 % (3-14); Neutrophils Absolute Auto 6600 /uL (1500-7000); Neutrophils Percent Auto 70.9 % (50-75); Platelet Count 506 X10^3/uL (150-400); Red Blood Cell Count 5.03 X10^6/uL (4.0-5.2); Red Cell Distribution Width 32.6 % (11.6-14.8); White Blood Cell Count 9.3 X10^3/uL (4.5-11.0)
[2019-07-22 18:44] LABS: Anisocytosis 3+
[2019-07-22 18:45] LABS: Hypochromasia 1+; Microcytosis 1+; Poikilocytosis 1+
[2019-07-22 19:33] LABS: Free T4, Direct Thyroxine 1.28 ng/dL (0.78-2.19)
[2019-07-22 19:47] LABS: Thyroid Stimulating Hormone < 0.02 uIU/mL (0.47-4.68)
== END ==
PROVIDERS: PCP Family Medicine Geriatric Medicine; Referring Provider Obstetrics & Gynecology; Visit Provider Obstetrics & Gynecology
DX: N93.9 Abnormal uterine and vaginal bleeding, unspecified (principal)
CPT/HCPCS: 36415; 84439; 84443; 85025

== ENCOUNTER → 2019-08-14 12:17 | Outpatient (CLI) | payer OTHER, MEDICAID, SELFPAY ==
[2019-08-14 13:36] LABS: Add Manual Diff / Slide Review NO; Basophils Absolute Auto 100 /uL (0-100); Basophils Percent Auto 1.4 % (0-2); Eosinophils Absolute Auto 300 /uL (0-450); Eosinophils Percent Auto 4.3 % (2-4); Hematocrit 38.2 % (36-46); Hemoglobin 12.3 g/dL (12.0-16.0); Lymphocytes Absolute Auto 1400 /uL (1100-4500); Lymphocytes Percent Auto 23.9 % (25-40); Mean Corpuscular HGB Conc 32.2 % (30-36); Mean Corpuscular Hemoglobin 25.2 PG (26-34); Mean Corpuscular Volume 78.1 fL (80-100); Monocytes Absolute Auto 800 /uL (0-900); Monocytes Percent Auto 12.6 % (3-14); Neutrophils Absolute Auto 3500 /uL (1500-7000); Neutrophils Percent Auto 57.8 % (50-75); Platelet Count 489 X10^3/uL (150-400); Red Blood Cell Count 4.89 X10^6/uL (4.0-5.2); Red Cell Distribution Width 26.5 % (11.6-14.8); White Blood Cell Count 6.1 X10^3/uL (4.5-11.0)
[2019-08-14 13:50] LABS: HEMOLYSIS < 15 (0-50); Iron 40 ug/dL (37-170)
[2019-08-14 13:55] LABS: Anisocytosis 2+; Poikilocytosis 1+
[2019-08-14 13:58] LABS: Alanine Aminotransferase 22 IU/L (<35); Albumin 4.8 g/dL (3.5-5.0); Albumin Globulin Ratio 1.5 (1.0-2.8); Alkaline Phosphatase 73 U/L (38-126); Aspartate Aminotransferase 30 IU/L (14-36); BUN Creatinine Ratio 15.4 (6-22); Bilirubin Total 0.3 mg/dL (0.2-1.3); Blood Urea Nitrogen 8 mg/dL (7-17); Calcium 10.1 mg/dL (8.4-10.2); Carbon Dioxide 21 mmol/L (22-32); Chloride 107 mmol/L (98-107); Estimated Glomerular Filt Rate > 60.0 mL/min (>60); Globulin 3.3 g/dL (1.7-4.1); Glucose 104 mg/dL (70-100); HEMOLYSIS < 15 (0-50); Potassium 4.4 mmol/L (3.4-5.1); Sodium 139 mmol/L (137-145); Total Protein 8.1 g/dL (6.3-8.2)
[2019-08-14 14:00] LABS: Percent Iron Saturation 10 % (15-50); Total Iron Binding Capacity 411 ug/dL (265-497); Transferrin 332 mg/dL (206-381)
[2019-08-14 14:09] LABS: Free T3, Triiodothyronine Free 6.79 pg/mL (2.77-5.27); Free T4, Direct Thyroxine 1.96 ng/dL (0.78-2.19)
[2019-08-14 14:23] LABS: Cortisol Random 3.99 ug/dL
[2019-08-14 14:40] LABS: Hemoglobin A1C% w Est Avg Glu 4.8 % (4.0-6.0); Vitamin B12 Reflex MMA if <400 380 pg/mL (239-931)
[2019-08-16 17:55] LABS: Methylmalonic Acid,Serum 110 nmol/L (0-378)
== END ==
PROVIDERS: PCP Family Medicine; Referring Provider Family Medicine; Visit Provider Family Medicine
DX: N93.9 Abnormal uterine and vaginal bleeding, unspecified (principal); R53.83 Other fatigue
CPT/HCPCS: 36415; 80053; 82533; 82607; 83036; 83540; 83550; 83921; 84439; 84481; 85025

== ENCOUNTER → 2019-09-11 09:34 | Outpatient (CLI) | payer OTHER, MEDICAID, SELFPAY ==
[2019-09-11 10:21] LABS: Add Manual Diff / Slide Review NO; Basophils Absolute Auto 100 /uL (0-100); Basophils Percent Auto 0.9 % (0-2); Eosinophils Absolute Auto 100 /uL (0-450); Eosinophils Percent Auto 2.1 % (2-4); Hematocrit 37.3 % (36-46); Hemoglobin 12.4 g/dL (12.0-16.0); Lymphocytes Absolute Auto 1600 /uL (1100-4500); Lymphocytes Percent Auto 24.8 % (25-40); Mean Corpuscular HGB Conc 33.3 % (30-36); Mean Corpuscular Hemoglobin 26.6 PG (26-34); Mean Corpuscular Volume 79.8 fL (80-100); Monocytes Absolute Auto 800 /uL (0-900); Monocytes Percent Auto 11.9 % (3-14); Neutrophils Absolute Auto 3800 /uL (1500-7000); Neutrophils Percent Auto 60.3 % (50-75); Platelet Count 432 X10^3/uL (150-400); Red Blood Cell Count 4.67 X10^6/uL (4.0-5.2); Red Cell Distribution Width 15.2 % (11.6-14.8); White Blood Cell Count 6.3 X10^3/uL (4.5-11.0)
[2019-09-11 10:30] LABS: Hemoglobin A1C% w Est Avg Glu 5.3 % (4.0-6.0)
[2019-09-11 10:49] LABS: Free T3, Triiodothyronine Free 9.47 pg/mL (2.77-5.27); Free T4, Direct Thyroxine 2.99 ng/dL (0.78-2.19)
[2019-09-11 11:01] LABS: Cortisol Random 9.71 ug/dL
[2019-09-11 11:02] LABS: Erythrocyte Sedimentation Rate 6 MM/HR (0-20)
[2019-09-11 11:03] LABS: Thyroid Stimulating Hormone < 0.02 uIU/mL (0.47-4.68)
== END ==
PROVIDERS: PCP Family Medicine; Referring Provider Family Medicine; Visit Provider Family Medicine
DX: R53.83 Other fatigue (principal)
CPT/HCPCS: 36415; 82533; 83036; 84439; 84443; 84481; 85025; 85651

== ENCOUNTER → 2019-09-12 09:34 | Outpatient (CLI) | payer OTHER, MEDICAID, SELFPAY ==
[2019-09-12 23:36] LABS: Thyroid Peroxidase Antibodies 19 IU/mL (0-34)
[2019-09-13 17:09] LABS: Anti Thyroglobulin Antibody 230.9 IU/mL (0.0-0.9)
== END ==
PROVIDERS: PCP Family Medicine; Referring Provider Family Medicine; Visit Provider Family Medicine
DX: E05.90 Thyrotoxicosis, unspecified without thyrotoxic crisis or storm (principal)
CPT/HCPCS: 36415; 86376; 86800

== ENCOUNTER → 2019-12-17 09:51 | Outpatient (CLI) | payer OTHER, MEDICAID, SELFPAY ==
--- NOTE | 2019-12-17 | DI.US.S_ITS ---
PROCEDURE: US THYROID INDICATIONS: ABN THYROID FUNC TEST TECHNIQUE: Real-time scanning was performed of the thyroid gland, with image documentation. COMPARISON: None. FINDINGS: Right: Thyroid lobe measures 5 x 1.6 x 1.6 cm, and is homogeneous in echotexture. Left: Thyroid lobe measures 4.4 x 1.3 x 1.3 cm. Isthmus: 2 mm thick. The thyroid is overall hypervascular in a generalized fashion. Nodule number: 1 Location: Left inferior medial thyroid Size: 0.9 x 0.8 x 0.8 cm. Composition: Predominantly solid Echogenicity: Hypoechoic Shape: wider than tall. Margins: Smooth Echogenic foci: None Total points: 4 ACR TI-RADS category: 4 IMPRESSION: The thyroid is diffusely hypervascular. Please correlate with thyroiditis. 9 mm nodule seen at the inferior pole of the left thyroid. By published criteria, no specific imaging follow-up is recommended. However, attention should be paid to this focus on any future follow-up studies. ACR TI-RADS definitions and recommendations: TI-RADS 1 (benign): 0 points. FNA not needed. TI-RADS 2 (not suspicious): 2 points. FNA not needed. TI-RADS 3 (mildly suspicious): 3 points. * FNA if 2.5 cm or larger, follow up if 1.5 cm or larger (at 1, 3, and 5 years). TI-RADS 4 (moderately suspicious): 4-6 points. * FNA if 1.5 cm or larger, follow up if 1 cm or larger (at 1, 2, 3, and 5 years). TI-RADS 5 (highly suspicious): 7 points or more. * FNA if 1 cm or larger, follow up if 0.5 cm or larger (every year for 5 years). Dictated by: Bon Madison M.D. on 12/17/2019 at 12:05 Approved by: Bon Madison M.D. on 12/17/2019 at 12:07
[2019-12-17 12:57] LABS: Thyroid Stimulating Hormone < 0.015 uIU/mL (0.47-4.68)
== END ==
PROVIDERS: PCP Family Medicine; Referring Provider Family Medicine; Visit Provider Internal Medicine
DX: E04.1 Nontoxic single thyroid nodule (principal); R94.6 Abnormal results of thyroid function studies; N93.9 Abnormal uterine and vaginal bleeding, unspecified; R53.83 Other fatigue
CPT/HCPCS: 36415; 76536; 84443

== ENCOUNTER → 2019-12-25 11:57 | Outpatient (CLI) | payer OTHER, MEDICAID, SELFPAY ==
[2019-12-25 15:24] LABS: Free T3, Triiodothyronine Free 3.36 pg/mL (2.77-5.27)
[2019-12-25 15:38] LABS: Thyroid Stimulating Hormone 0.033 uIU/mL (0.47-4.68)
== END ==
PROVIDERS: PCP Family Medicine; Referring Provider Family Medicine; Visit Provider Family Medicine
DX: E05.00 Thyrotoxicosis with diffuse goiter without thyrotoxic crisis or storm (principal)
CPT/HCPCS: 36415; 84439; 84443; 84481

== ENCOUNTER → 2020-01-27 11:16 | Outpatient (CLI) | payer OTHER, MEDICAID, SELFPAY ==
[2020-01-27 12:29] LABS: Free T3, Triiodothyronine Free 2.43 pg/mL (2.77-5.27); Free T4, Direct Thyroxine 0.74 ng/dL (0.78-2.19)
== END ==
PROVIDERS: PCP Family Medicine; Referring Provider Family Medicine; Visit Provider Family Medicine
DX: E05.00 Thyrotoxicosis with diffuse goiter without thyrotoxic crisis or storm (principal)
CPT/HCPCS: 36415; 84439; 84443; 84481

== ENCOUNTER → 2020-08-19 10:22 | Outpatient (CLI) | payer OTHER, MEDICAID, SELFPAY ==
[2020-08-19] MEDS: COVID-19 VACC #1, MRNA(MOD) 100 MCG/0.5 ML VIAL IM (10:32)
== END ==
PROVIDERS: PCP Family Medicine; Visit Provider Internal Medicine
DX: Z23 Encounter for immunization (principal)
CPT/HCPCS: 0011A; 91301

== ENCOUNTER → 2020-09-16 10:29 | Outpatient (CLI) | payer OTHER, MEDICAID, SELFPAY ==
[2020-09-16] MEDS: COVID-19 VACC #2, MRNA(MOD) 100 MCG/0.5 ML VIAL IM (10:43)
== END ==
PROVIDERS: PCP Family Medicine; Visit Provider Internal Medicine
DX: Z23 Encounter for immunization (principal)
CPT/HCPCS: 0012A; 91301

== ENCOUNTER → 2021-01-29 11:42 | Outpatient (CLI) | payer OTHER, MEDICAID, SELFPAY ==
[2021-01-29 19:59] LABS: Add Manual Diff / Slide Review NO; Basophils Absolute Auto 100 /uL (0-100); Basophils Percent Auto 0.7 % (0-2); Eosinophils Absolute Auto 200 /uL (0-450); Eosinophils Percent Auto 1.5 % (2-4); Hematocrit 45.7 % (36-46); Hemoglobin 14.5 g/dL (12.0-16.0); Lymphocytes Absolute Auto 2000 /uL (1100-4500); Lymphocytes Percent Auto 19.3 % (25-40); Mean Corpuscular HGB Conc 31.8 % (30-36); Mean Corpuscular Volume 91.1 fL (80-100); Monocytes Absolute Auto 700 /uL (0-900); Monocytes Percent Auto 7.1 % (3-14); Neutrophils Absolute Auto 7300 /uL (1500-7000); Neutrophils Percent Auto 71.4 % (50-75); Platelet Count 355 X10^3/uL (150-400); Red Blood Cell Count 5.02 X10^6/uL (4.0-5.2); Red Cell Distribution Width 15.7 % (11.6-14.8); White Blood Cell Count 10.3 X10^3/uL (4.5-11.0)
[2021-01-29 20:10] LABS: HEMOLYSIS < 15 (0-50); Iron 37 ug/dL (37-170)
[2021-01-29 20:13] LABS: Alanine Aminotransferase 11 IU/L (<35); Albumin 4.5 g/dL (3.5-5.0); Albumin Globulin Ratio 1.5 (1.0-2.8); Alkaline Phosphatase 60 U/L (38-126); Aspartate Aminotransferase 23 IU/L (14-36); BUN Creatinine Ratio 14.3 (6-22); Bilirubin Total 0.3 mg/dL (0.2-1.3); Blood Urea Nitrogen 9 mg/dL (7-17); Calcium 9.8 mg/dL (8.4-10.2); Carbon Dioxide 31 mmol/L (22-32); Chloride 102 mmol/L (98-107); Estimated Glomerular Filt Rate > 60.0 mL/min (>60); Globulin 3.1 g/dL (1.7-4.1); Glucose 84 mg/dL (70-100); HEMOLYSIS < 15 (0-50); Potassium 4.9 mmol/L (3.4-5.1); Sodium 139 mmol/L (137-145); Total Protein 7.6 g/dL (6.3-8.2)
[2021-01-29 20:22] LABS: Percent Iron Saturation 11 % (15-50); Total Iron Binding Capacity 332 ug/dL (265-497); Transferrin 292 mg/dL (206-381)
[2021-01-29 20:25] LABS: Free T3, Triiodothyronine Free 3.15 pg/mL (2.77-5.27)
[2021-01-29 20:39] LABS: Thyroid Stimulating Hormone 1.06 uIU/mL (0.47-4.68)
[2021-01-29 20:46] LABS: Ferritin 10 ng/mL (6-137)
== END ==
PROVIDERS: PCP Family Medicine; Visit Provider Family Medicine
DX: E05.00 Thyrotoxicosis with diffuse goiter without thyrotoxic crisis or storm (principal); F41.9 Anxiety disorder, unspecified
CPT/HCPCS: 80053; 82728; 83540; 83550; 84439; 84443; 84481; 85025

== ENCOUNTER → 2023-02-10 12:46 | Outpatient (CLI) | payer OTHER, MEDICAID, SELFPAY ==
[2023-02-10 15:27] LABS: Cholesterol 233 mg/dL (140-199); HDL Cholesterol 55 mg/dL (40-60); LDL Cholesterol Calculated 160 mg/dL (<100); Triglycerides 88 mg/dL (35-150)
== END ==
PROVIDERS: PCP Family Medicine; Referring Provider Family Medicine; Visit Provider Family Medicine
DX: E05.00 Thyrotoxicosis with diffuse goiter without thyrotoxic crisis or storm (principal); F43.10 Post-traumatic stress disorder, unspecified; Z12.11 Encounter for screening for malignant neoplasm of colon; Z12.31 Encounter for screening mammogram for malignant neoplasm of breast; Z13.220 Encounter for screening for lipoid disorders
CPT/HCPCS: 36415; 80061; 84443

== ENCOUNTER 2023-05-18 12:06 | Emergency (ER) | payer OTHER, MEDICAID, SELFPAY ==
[2023-05-18 12:23] VITALS: BP 145/63; PULSE 53; RESP 18; TEMP 37.4; O2SAT 98; BMI 16.7
--- NOTE | 2023-05-18 12:31 | DI.RAD.S_ITS ---
PROCEDURE: XR CHEST 1V INDICATIONS: chest pain TECHNIQUE: One view of the chest was acquired. COMPARISON: None. FINDINGS: Surgical changes and devices: None. Lungs and pleura: Lungs are clear. No pleural effusions or pneumothorax. Mediastinum: Mediastinal contours appear normal. Heart size is normal. Bones and chest wall: No suspicious bony lesions. Overlying soft tissues appear unremarkable. IMPRESSION: No acute pulmonary process. Dictated by: Rosalva Browning M.D. on 05/18/2023 at 12:46 Approved by: Rosalva Browning M.D. on 05/18/2023 at 12:46
[2023-05-18 12:58] LABS: Prothrombin Time 11.7 SECONDS (9.4-12.5)
[2023-05-18 13:01] LABS: Add Manual Diff / Slide Review NO; Basophils Absolute Auto 100 /uL (0-100); Basophils Percent Auto 0.8 % (0-2); Eosinophils Absolute Auto 300 /uL (0-450); Eosinophils Percent Auto 3.8 % (2-4); Hematocrit 43.6 % (36-46); Hemoglobin 15.1 g/dL (12.0-16.0); Lymphocytes Absolute Auto 2100 /uL (1100-4500); Mean Corpuscular HGB Conc 34.7 % (30-36); Mean Corpuscular Hemoglobin 30.8 PG (26-34); Mean Corpuscular Volume 88.8 fL (80-100); Monocytes Absolute Auto 500 /uL (0-900); Monocytes Percent Auto 6.6 % (3-14); Neutrophils Absolute Auto 5100 /uL (1500-7000); Neutrophils Percent Auto 62.8 % (50-75); PTT Partial Thromboplastin Tim 34 SECONDS (25.1-36.5); Platelet Count 303 X10^3/uL (150-400); Red Blood Cell Count 4.91 X10^6/uL (4.0-5.2); Red Cell Distribution Width 13.4 % (11.6-14.8); White Blood Cell Count 8.1 X10^3/uL (4.5-11.0)
[2023-05-18 13:02] VITALS: BP 109/69; PULSE 56; RESP 12; O2SAT 98
--- NOTE | 2023-05-18 13:03 | ED_ITS ---
HPI - Chest Pain General Chief Complaint: Chest Pain Stated Complaint: chest pains Time Seen by Provider: 05/18/23 12:44 Source: patient Mode of arrival: Ambulatory Limitations: no limitations History of Present Illness HPI narrative: Patient is a 53-year-old female who is here for evaluation of approximately 2 weeks of persistent chest discomfort/pressure. She states it is on both her left and the right side of her chest. She also states she is having right shoulder pain and right arm tingling. Also describing fatigue. Discomfort not necessarily worse with touching. She states she has not noticed that it worsens at all with movement of her arm. Is having some nausea but no abdominal pain or vomiting. No coughing or fevers. Related Data Home Medications Medication Instructions Recorded Confirmed albuterol sulfate 90 mcg/actuation 2 puff inhalation Q4-6H PRN asthma 06/10/22 10/07/22 aerosol inhaler loratadine 10 mg tablet 10 mg PO DAILY PRN allergy symptoms 06/10/22 10/07/22 sumatriptan succinate 100 mg See Rx Instructions PO .COMPLEX 06/10/22 10/07/22 tablet (Imitrex) incobotulinumtoxinA 100 unit 5 unit IM ONCE 10/07/22 intramuscular solution (Xeomin) Previous Rx's Medication Instructions Recorded lidocaine-prilocaine 2.5 %-2.5 % 1 applic topical ONCE #25 grams 07/15/22 topical cream timolol 0.5 % eye drops See Rx Instructions EYE-BOTH 12/12/22 .COMPLEX #5 mL timolol maleate 0.5 % once daily 1 drp EYE-LEFT ONCE PRN Migraine 12/14/22 eye drops #5 mL trazodone 150 mg tablet 150 mg PO BEDTIME #30 tabs 01/05/23 sertraline 100 mg tablet 100 mg PO BID #180 tabs 02/06/23 buspirone 15 mg tablet 15 mg PO TID #90 tabs 04/21/23 levothyroxine 50 mcg tablet 50 mcg PO DAILY #90 tabs 04/21/23 clonazepam 1 mg tablet 1 mg PO BID PRN severe anxiety #60 04/27/23 tabs Allergies Allergy/AdvReac Type Severity Reaction Status Date / Time lorazepam [From Ativan] AdvReac Severe Difficulty Verified 05/18/23 12:31 Breathing buspirone AdvReac Intermediate Agitated Verified 05/18/23 12:31 Review of Systems Constitutional Constitutional: Reports system reviewed and no additional complaints, except as documented Cardiovascular Cardiovascular: Reports system reviewed and no additional complaints, except as documented Respiratory Respiratory: Reports system reviewed and no additional complaints, except as documented Gastrointestinal Gastrointestinal: Reports system reviewed and no additional complaints, except as documented Integumentary/Breasts Skin/Breast: Reports system reviewed and no additional complaints, except as documented Neurologic Neurologic: Reports system reviewed and no additional complaints, except as documented Hematologic/Lymphatic On Anticoagulants: No Patient History Medical History Asthma Foot pain (~2014) Hepatitis (~2001) Chicken pox (~1980) Anemia Ruptured tympanic membrane (~1979) History of recurrent ear infection (~1979) Anxiety, generalized Seasonal allergic rhinitis Graves disease (~2019) Menorrhagia Depression Surgical History (Updated 07/05/22 @ 21:37 by Socorro Nair) Anesthesia History of adenoidectomy (~1975) History of hand surgery (~1985) Cyst (~2019) Previous section (~1987) Family History (Updated 07/05/22 @ 21:38 by Socorro Nair) Mother Thyroid disorder Social History marital status: household members: spouse lives independently: Yes Smoking Status: Never smoker alcohol intake: never Smoking Status: Never smoker Substance Use Type: marijuana Exam Initial Vital Signs Initial Vital Signs: Vital Signs Temperature 99.3 F 05/18/23 12:23 Pulse Rate 53 L 05/18/23 12:23 Respiratory Rate 18 05/18/23 12:23 Blood Pressure 145/63 H 05/18/23 12:23 Pulse Oximetry 98 05/18/23 12:23 Oxygen Delivery Method Room Air 05/18/23 12:23 Const General: cooperative, comfortable and No ill appearing HENMT Head: normal to inspection and normocephalic Chest Chest: No crepitus and No tenderness Resp Effort & Inspection: normal respiratory effort Auscultation: clear to auscultation bilaterally Cardio Rate: regular rate Rhythm: regular rhythm GI Inspection: normal to inspection Skin General: no rashes or lesions noted Neuro General: patient alert and moves all extremities Scores HEART Score Heart Score history: Slightly Suspicious Heart Score EKG: Normal Heart Score Age: 45-64 years old Heart Score risk factors: No known risk factors Heart Score troponin: < or = to normal limit Heart Score Total: 1 Course Orders Ordered: ED Orders 05/18/23 12:31 XR chest 1V Stat 05/18/23 12:32 EKG-12 Lead Stat 05/18/23 12:40 Complete Blood Count AUTO DIFF Stat Comprehensive Metabolic Panel Stat Lipase Stat Magnesium Stat PTT Partial Thromboplastin Sandro Stat Prothrombin Time INR Stat Troponin & CK Cardiac Panel Stat 05/18/23 14:20 EKG-12 Lead Routine Discontinued Medications Aspirin (Aspirin 81 Mg Chew Tab) 324 mg PO NOW ONE Stop: 05/18/23 12:32 Last Admin: 05/18/23 13:06 Dose: 324 mg Documented By: DEVYN Vital Signs Vital signs: Vital Signs - 8 hr 05/18/23 12:23 05/18/23 13:02 05/18/23 14:00 Temperature 99.3 F Pulse Rate 53 L 56 L Respiratory Rate 18 12 Blood Pressure 145/63 H 109/69 134/82 Pulse Oximetry 98 98 Oxygen Delivery Method Room Air Room Air 05/18/23 14:10 05/18/23 14:11 05/18/23 14:11 Temperature Pulse Rate 61 59 L Respiratory Rate 21 Blood Pressure 133/82 Pulse Oximetry 92 95 Oxygen Delivery Method 05/18/23 14:30 05/18/23 14:30 Temperature Pulse Rate 57 L Respiratory Rate 25 H Blood Pressure 122/68 Pulse Oximetry 94 Oxygen Delivery Method Room Air MDM - Chest Pain Lab Data Attestation: I reviewed the patient's lab results. 05/18/23 12:40 05/18/23 12:40 Labs: Lab Results 05/18/23 Range/Units 12:40 WBC 8.1 (4.5-11.0) X10^3/uL RBC 4.91 (4.0-5.2) X10^6/uL Hgb 15.1 (12.0-16.0) g/dL Hct 43.6 (36-46) % MCV 88.8 (80-100) fL MCH 30.8 (26-34) PG MCHC 34.7 (30-36) % RDW 13.4 (11.6-14.8) % Plt Count 303 (150-400) X10^3/uL Neut % (Auto) 62.8 (50-75) % Lymph % (Auto) 26.0 (25-40) % Alcorn % (Auto) 6.6 (3-14) % Eos % (Auto) 3.8 (2-4) % Baso % (Auto) 0.8 (0-2) % Neut # (Auto) 5100 (3596-3420) /uL Lymph # (Auto) 2100 (0736-8199) /uL Alcorn # (Auto) 500 (0-900) /uL Eos # (Auto) 300 (0-450) /uL Baso # (Auto) 100 (0-100) /uL PT 11.7 (9.4-12.5) SECONDS INR 1.0 (0.9-1.3) APTT 34 (25.1-36.5) SECONDS Sodium 137 (137-145) mmol/L Potassium 3.7 (3.4-5.1) mmol/L Chloride 101 (98-107) mmol/L Carbon Dioxide 25 (22-32) mmol/L BUN 6 L (7-17) mg/dL Creatinine 0.61 (0.52-1.04) mg/dL Estimated GFR > 60 (>60) mL/min BUN/Creatinine Ratio 9.8 (6-22) Glucose 88 (70-100) mg/dL Calcium 10.2 (8.4-10.2) mg/dL Magnesium 1.7 (1.6-2.3) mg/dL Total Bilirubin 0.6 (0.2-1.3) mg/dL AST TNP ALT 13 (<35) IU/L Alkaline Phosphatase 52 (38-126) U/L Total Creatine Kinase < 20 L (30-135) U/L Troponin I < 0.012 (0.01-0.034) ng/mL Total Protein 7.8 (6.3-8.2) g/dL Albumin 4.6 (3.5-5.0) g/dL Globulin 3.2 (1.7-4.1) g/dL Albumin/Globulin Ratio 1.4 (1.0-2.8) Lipase 298 (23-300) U/L Imaging Data Chest x-ray: Radiologist's Impression: PROCEDURE: XR CHEST 1V INDICATIONS: chest pain TECHNIQUE: One view of the chest was acquired. COMPARISON: None. FINDINGS: Surgical changes and devices: None. Lungs and pleura: Lungs are clear. No pleural effusions or pneumothorax. Mediastinum: Mediastinal contours appear normal. Heart size is normal. Bones and chest wall: No suspicious bony lesions. Overlying soft tissues appear unremarkable. IMPRESSION: No acute pulmonary process. ECG Data Interpretation: Sinus rhythm Ventricular rate is 71 Normal axis Normal QRS Normal QTC No ST T wave changes Repeat EKG Sinus bradycardia Ventricular rate of 58 Normal axis Normal QRS Normal QTC No ST T wave changes MDM Narrative Medical decision making narrative: Low risk heart score. Per her report she has had persistent symptoms for several days. Troponin is negative. Chest x-ray is unremarkable. She stated that she had an episode of chest pain here in the emergency department however a review of the electronic device monitor shows no specific ectopy. Repeat EKG at that time was unremarkable. Tried to provide reassurance to the patient and advised that she contact her primary care doctor for follow-up to discuss the indications for Holter monitor and stress test. Patient seemed very upset about the lack of a definitive diagnosis. She was given specific return precautions. Discharge Plan Departure Patient Disposition: Home Clinical Impression: Atypical chest pain Instructions: DI for Atypical Chest Pain Activity Restrictions/Additional Instructions: Recommend that you continue to take all of your medications as directed. I also recommend that you contact your primary care doctor for a follow-up to discuss further workup to include the indications for a Holter monitor and a stress test. He is test can be performed as an outpatient. Return to the emergency department for new symptoms. Prescriptions: No Action clonazepam 1 mg tablet 1 mg PO BID PRN (Reason: severe anxiety) Qty: 60 1RF timolol 0.5 % drops See Rx Instructions EYE-BOTH .COMPLEX Qty: 5 1RF Rx Instructions: Place one drop in each eye with the onset of migraine GARCIA timolol maleate 0.5 % drops, once daily 1 drp EYE-LEFT ONCE PRN (Reason: Migraine) Qty: 5 0RF trazodone 150 mg tablet 150 mg PO BEDTIME Qty: 30 2RF sertraline 100 mg tablet 100 mg PO BID Qty: 180 1RF levothyroxine 50 mcg tablet 50 mcg PO DAILY Qty: 90 1RF buspirone 15 mg tablet 15 mg PO TID Qty: 90 2RF Rx Instructions: Name brand Only (Teva) albuterol sulfate 90 mcg/actuation HFA aerosol inhaler 2 puff INHALATION Q4-6H PRN (Reason: asthma) Patient Comments: INHALE TWO PUFFS INTO THE LUNGS EVERY 4 TO 6 HOURS NEEDED FOR ASTHMA loratadine 10 mg tablet 10 mg PO DAILY PRN (Reason: allergy symptoms) sumatriptan succinate [Imitrex] 100 mg tablet See Rx Instructions PO .COMPLEX Rx Instructions: take 1 tab at onset of headache; if no relief, may repeat 1 tab after at least 2 hrs; max = 2 tabs/24 hrs PO lidocaine-prilocaine 2.5-2.5 % cream 1 applic topical ONCE Qty: 25 0RF Rx Instructions: Applied to the forehead at least 1 hour before Botox injections Xeomin 100 unit recon soln 5 unit IM ONCE Rx Instructions: Inject 5 units at each point in the forehead for migraine prevention Referrals: Sedrick Ferrari MD [Primary Care Provider] - Stand Alone Forms: Patient Portal/API
[2023-05-18] MEDS: ASPIRIN 81 MG CHEW TAB 324 MG PO (13:06)
[2023-05-18 13:25] LABS: Alanine Aminotransferase 13 IU/L (<35); Albumin 4.6 g/dL (3.5-5.0); Albumin Globulin Ratio 1.4 (1.0-2.8); Alkaline Phosphatase 52 U/L (38-126); BUN Creatinine Ratio 9.8 (6-22); Bilirubin Total 0.6 mg/dL (0.2-1.3); Blood Urea Nitrogen 6 mg/dL (7-17); Calcium 10.2 mg/dL (8.4-10.2); Carbon Dioxide 25 mmol/L (22-32); Chloride 101 mmol/L (98-107); Creatine Kinase < 20 U/L (30-135); Estimated Glomerular Filt Rate > 60 mL/min (>60); Globulin 3.2 g/dL (1.7-4.1); Glucose 88 mg/dL (70-100); HEMOLYSIS < 15 (0-50); Lipase 298 U/L (23-300); Magnesium 1.7 mg/dL (1.6-2.3); Potassium 3.7 mmol/L (3.4-5.1); Sodium 137 mmol/L (137-145); Total Protein 7.8 g/dL (6.3-8.2)
[2023-05-18 13:36] LABS: Troponin I < 0.012 ng/mL (0.01-0.034)
[2023-05-18 14:00] VITALS: BP 134/82
[2023-05-18 14:10] VITALS: PULSE 61; O2SAT 92
[2023-05-18 14:11] VITALS: BP 133/82; PULSE 59; RESP 21; O2SAT 95
[2023-05-18 14:30] VITALS: BP 122/68; PULSE 57; RESP 25; O2SAT 94
[2023-05-19 15:07] LABS: Aspartate Aminotransferase 26 IU/L (14-36)
== END 2023-05-18 15:08 | disposition home or self-care (01) ==
PROVIDERS: Emergency Provider Emergency Medicine; PCP Family Medicine
DX: R07.89 Other chest pain (principal); R00.1 Bradycardia, unspecified
CPT/HCPCS: 36415; 71045; 80053; 82550; 83690; 83735; 84484; 85025; 85610; 85730; 93005; 99284

== ENCOUNTER 2024-02-24 12:43 | Emergency (ER) | payer OTHER, MEDICAID, SELFPAY ==
[2024-02-24 12:47] VITALS: BP 119/64; PULSE 65; RESP 18; TEMP 36.9; O2SAT 100; BMI 16.7
--- NOTE | 2024-02-24 12:53 | DI.RAD.S_ITS ---
PROCEDURE: XR ANKLE LT MIN 3V INDICATIONS: fall TECHNIQUE: 3 views of the ankle were acquired. COMPARISON: None. FINDINGS: Bones: There is a 5 mm avulsion fracture fragment along the distal aspect of fibula. No additional focal bony abnormalities can be seen. Age-appropriate bony degenerative changes are seen. The talar dome demonstrates no stephen abnormality. Soft tissues: Lateral soft tissue swelling is seen. IMPRESSION: 5 mm avulsion fracture fragment along the distal tip of the fibula. Dictated by: Bon Madison M.D. on 02/24/2024 at 12:42 Approved by: Bon Madison M.D. on 02/24/2024 at 12:43
--- NOTE | 2024-02-24 13:54 | ED_ITS ---
HPI - Extremity Injury (Lower) <Fernanda Mitchell PA-C - Last Filed: 02/24/24 14:23> General Chief Complaint: Extremity Injury, Lower Stated Complaint: Hurt left ankle Time Seen by Provider: 02/24/24 13:54 Source: patient Mode of arrival: Family Vehicle History of Present Illness HPI Narrative: Patient is a very pleasant 53-year-old female presents to the emergency room department today with complaints of left lateral ankle discomfort and pain. Patient was out walking yesterday, she did not realize that they had just done some changes to the culvert near her house, she stepped into the culvert, falling and twisting her left ankle, she heard a loud pop and now is unable to bear weight on the left ankle without substantial pain. This happened last evening, at home they have done ice, they have rubbed arnica on the lateral ankle, lidocaine on the lateral ankle, they have elevated, they have applied ice. She is unable to weightbear. They came to the emergency room department to be further evaluated. Last night she took some Tylenol with codeine that helped with the discomfort and pain initially she had tried some Aleve with limited relief of the discomfort and pain. She did not hit her head, she did not lose consciousness, she has no other further complaints. Related Data Home Medications Medication Instructions Recorded Confirmed sumatriptan succinate 100 mg See Rx Instructions PO .COMPLEX 06/10/22 09/14/23 tablet (Imitrex) incobotulinumtoxinA 100 unit 5 unit IM ONCE 10/07/22 09/14/23 intramuscular solution (Xeomin) Previous Rx's Medication Instructions Recorded lidocaine-prilocaine 2.5 %-2.5 % 1 applic topical ONCE #25 grams 07/15/22 topical cream timolol 0.5 % eye drops See Rx Instructions EYE-BOTH 06/26/23 .COMPLEX #5 mL buspirone 15 mg tablet 15 mg PO TID #270 tabs 07/24/23 albuterol sulfate 90 mcg/actuation 2 puff inhalation Q4-6H PRN asthma 07/31/23 aerosol inhaler #8.5 grams loratadine 10 mg tablet 10 mg PO DAILY PRN allergy 08/21/23 symptoms #90 tabs trazodone 150 mg tablet 150 mg PO BEDTIME #30 tabs 10/12/23 sertraline 100 mg tablet 150 mg (1.5 x 100 mg) PO DAILY 12/18/23 #135 tabs fluticasone propionate 110 2 puff inhalation BID #12 grams 12/25/23 mcg/actuation HFA aerosol inhaler clonazepam 1 mg tablet 1 mg PO BID PRN severe anxiety #60 01/22/24 tabs levothyroxine 50 mcg tablet 50 mcg PO DAILY #90 tabs 01/22/24 hydrocodone 5 mg-acetaminophen 325 1 tab PO Q8H PRN pain #10 tabs 02/24/24 mg tablet Allergies Allergy/AdvReac Type Severity Reaction Status Date / Time lorazepam [From Ativan] AdvReac Severe Difficulty Verified 02/24/24 12:53 Breathing buspirone AdvReac Intermediate Agitated Verified 02/24/24 12:53 Review of Systems <Fernanda Mitchell PA-C - Last Filed: 02/24/24 14:23> Review of Systems Narrative: Negative except as above Musculoskeletal Comments: Left lateral ankle pain Patient History <Fernanda Mitchell PA-C - Last Filed: 02/24/24 14:23> Medical History Asthma Foot pain (~2014) Hepatitis (~2001) Chicken pox (~1980) Anemia Ruptured tympanic membrane (~1979) History of recurrent ear infection (~1979) Anxiety, generalized Seasonal allergic rhinitis Graves disease (~2019) Menorrhagia Depression Surgical History Anesthesia History of adenoidectomy (~1975) History of hand surgery (~1985) Cyst (~2019) Previous section (~1987) Family History Mother Thyroid disorder Social History marital status: household members: spouse lives independently: Yes Smoking Status: Never smoker alcohol intake: never Smoking Status: Never smoker alcohol intake frequency: 0-2 drinks per day Substance Use Type: marijuana Exam <Fernanda Mitchell PA-C - Last Filed: 02/24/24 14:23> Initial Vital Signs Initial Vital Signs: Vital Signs Temperature 98.4 F 02/24/24 12:47 Pulse Rate 65 02/24/24 12:47 Respiratory Rate 18 02/24/24 12:47 Blood Pressure 119/64 02/24/24 12:47 Pulse Oximetry 100 02/24/24 12:47 Oxygen Delivery Method Room Air 02/24/24 12:47 Reviewed Const General: cooperative, healthy appearing, comfortable, well developed, well groomed, No acute distress and No in distress Eyes General: Yes appearance normal, both eyes and all related structures Pupils: PERRL EOM: EOM intact bilaterally Skin Other: Warm pink and dry Neuro Other: Cranial nerves are grossly intact, gait is not tested due to discomfort and pain Extrem Other: Range of motion, strength, pulses, cap refill preserved in the upper extremity and right lower extremity. The patient does not have any pain in the left hip, left femur, left knee, left tib-fib proximal area. Patient has pain in the left ankle. Pain with plantar and dorsiflexion. Pain with attempted inversion eversion. Patient is able to move her toes. Currently the patient has an Ryan wrap wrapped around the ankle and an ice pack applied. Psych Other: Appearance, mental status, speech, movement, mood, affect, attitude, thought process, thought content, judgment are all within normal limits <Mal Aparicio MD - Last Filed: 02/24/24 19:20> Initial Vital Signs Initial Vital Signs: Vital Signs Temperature 98.4 F 02/24/24 12:47 Pulse Rate 65 02/24/24 12:47 Respiratory Rate 18 02/24/24 12:47 Blood Pressure 119/64 02/24/24 12:47 Pulse Oximetry 100 02/24/24 12:47 Oxygen Delivery Method Room Air 02/24/24 12:47 Procedures <Fernanda Mitchell PA-C - Last Filed: 02/24/24 14:23> Orthopedic Splinting/Casting Injury #1: Time of procedure: 14:20 Side: left Lower Extremity Injury Location: ankle Lower Extremity Immobilizer: boot orthosis Other Orthopedic Equipment: crutches Placed by: Nursing Scores <MAGDALENA Sanchez Last Filed: 02/24/24 14:23> GCS Citation: 15 Course <Fernanda Mitchell PA-C - Last Filed: 02/24/24 14:23> Orders Ordered: ED Orders 02/24/24 12:53 XR ankle LT min 3V Stat Vital Signs Vital signs: Vital Signs - 8 hr 02/24/24 12:47 Temperature 98.4 F Pulse Rate 65 Respiratory Rate 18 Blood Pressure 119/64 Pulse Oximetry 100 Oxygen Delivery Method Room Air <Mal Aparicio MD - Last Filed: 02/24/24 19:20> Orders Ordered: ED Orders 02/24/24 12:53 XR ankle LT min 3V Stat Vital Signs Vital signs: Vital Signs - 8 hr 02/24/24 12:47 Temperature 98.4 F Pulse Rate 65 Respiratory Rate 18 Blood Pressure 119/64 Pulse Oximetry 100 Oxygen Delivery Method Room Air MDM - Extremity Injury (Lower) <Fernanda Mitchell PA-C - Last Filed: 02/24/24 14:23> Imaging Data Extremity x-ray #1: Radiologist's Impression: [place] [address] XRay Report Signed Patient: Mimi Sanford MR#: [id number] : 1970 Acct:[id number] Age/Sex: 53 / F Date of Service: 02/24/24 Loc: ED Accession Number: [id number] Procedure: XR ankle LT min 3V Ordering Provider: Mal Aparicio MD PROCEDURE: XR ANKLE LT MIN 3V INDICATIONS: fall TECHNIQUE: 3 views of the ankle were acquired. COMPARISON: None. FINDINGS: Bones: There is a 5 mm avulsion fracture fragment along the distal aspect of fibula. No additional focal bony abnormalities can be seen. Age-appropriate bony degenerative changes are seen. The talar dome demonstrates no stephen abnormality. Soft tissues: Lateral soft tissue swelling is seen. IMPRESSION: 5 mm avulsion fracture fragment along the distal tip of the fibula. Dictated by: Bon Madison M.D. on 02/24/2024 at 12:42 Approved by: Bon Madison M.D. on 02/24/2024 at 12:43 [facility] Narrative Medical decision making narrative: Pleasant 53-year-old female who by accidentally stepped in a culvert last night heard a loud popping crunching sound to the left ankle fell, had to be carried into the house by and friend. Who now is unable to weight bear on the left lower extremity. Who presented to the emergency department for further evaluation. Was able to take Tylenol with codeine last night with some limited relief. Was not able to get relief with just leave. Did use topical preparations with minimal relief as well. He has been elevating it, placing ice on it, but continues to have pain and discomfort and unable to ambulate or weightbear. X-ray shows the patient has an avulsion fracture to the distal end of the fibula. Most likely this is associated with the talofibular ligament avulsion tendon injury. Patient is placed in a boot, given crutches. Prescription is sent to the pharmacy Patient is made nonweightbearing Ortho referral Differential diagnosis; fall, high-grade ankle sprain, talofibular ligament tear, distal fibula avulsion fracture. Discharge Plan Departure Patient Disposition: Home Clinical Impression: Ligament tear Fracture of distal end of fibula Qualifiers: Encounter type: initial encounter Fracture type: closed Fracture morphology: other fracture Laterality: left Qualified Code(s): S82.832A - Other fracture of upper and lower end of left fibula, initial encounter for closed fracture Activity Restrictions/Additional Instructions: Boot for comfort [id number] Tylenol Follow up with Orthopedics Ice for comfort Nonweightbearing Crutches Please be careful with the pain medication Make sure that you use either fiber or Colace or docusate or MiraLax IMPRESSION: 5 mm avulsion fracture fragment along the distal tip of the fibula. Prescriptions: New hydrocodone-acetaminophen 5-325 mg tablet 1 tab PO Q8H PRN (Reason: pain) Qty: 10 0RF No Action sertraline 100 mg tablet 150 mg PO DAILY Qty: 135 3RF timolol 0.5 % drops See Rx Instructions EYE-BOTH .COMPLEX Qty: 5 1RF Rx Instructions: Place one drop in each eye with the onset of migraine GARCIA buspirone 15 mg tablet 15 mg PO TID Qty: 270 3RF Rx Instructions: Name brand Only (Teva) albuterol sulfate 90 mcg/actuation HFA aerosol inhaler 2 puff INHALATION Q4-6H PRN (Reason: asthma) Qty: 8.5 3RF loratadine 10 mg tablet 10 mg PO DAILY PRN (Reason: allergy symptoms) Qty: 90 1RF trazodone 150 mg tablet 150 mg PO BEDTIME Qty: 30 2RF fluticasone propionate 110 mcg/actuation HFA aerosol inhaler 2 puff inhalation BID Qty: 12 3RF levothyroxine 50 mcg tablet 50 mcg PO DAILY Qty: 90 1RF clonazepam 1 mg tablet 1 mg PO BID PRN (Reason: severe anxiety) Qty: 60 2RF sumatriptan succinate [Imitrex] 100 mg tablet See Rx Instructions PO .COMPLEX Rx Instructions: take 1 tab at onset of headache; if no relief, may repeat 1 tab after at least 2 hrs; max = 2 tabs/24 hrs PO lidocaine-prilocaine 2.5-2.5 % cream 1 applic topical ONCE Qty: 25 0RF Rx Instructions: Applied to the forehead at least 1 hour before Botox injections Xeomin 100 unit recon soln 5 unit IM ONCE Rx Instructions: Inject 5 units at each point in the forehead for migraine prevention Referrals: Liu Camarena MD [Non-Staff] - (You are being referred to the provider (or provider group) listed but no appointment has been made. Please call the provider?s office within the next day or two at the phone number above to make an appointment. Distal avulsion fibula fracture) Sedrick Ferrari MD [Primary Care Provider] - Stand Alone Forms: Patient Portal/API ED Sign-out <Mal Aparicio MD - Last Filed: 02/24/24 19:20> Cosign ED Attending Cosignature Attestation: I was immediately available in the department for consultation. This documentation has been reviewed. Mal Aparicio MD
== END 2024-02-24 14:35 | disposition home or self-care (01) ==
PROVIDERS: Emergency Provider Physician Assistant; PCP Family Medicine
DX: S82.832A Other fracture of upper and lower end of left fibula, initial encounter for closed fracture (principal); S93.402A Sprain of unspecified ligament of left ankle, initial encounter; X50.1XXA Overexertion from prolonged static or awkward postures, initial encounter
CPT/HCPCS: 29580; 73610; 99282; 99283

== ENCOUNTER → 2024-04-24 10:47 | Outpatient (CLI) | payer OTHER, MEDICAID, SELFPAY ==
--- NOTE | 2024-04-24 10:49 | DI.MG.S_ITS ---
BILATERAL DIGITAL SCREENING MAMMOGRAM 3D/2D WITH CAD: 04/24/2024 CLINICAL: Baseline exam. Routine screening. Family history of breast cancer. No prior exams were available for comparison. There are scattered areas of fibroglandular density (category b / 25%-50% glandular tissue). Current study was also evaluated with a Computer Aided Detection (CAD) system. No significant masses, calcifications, or other findings are seen in either breast. IMPRESSION: NEGATIVE There is no mammographic evidence of malignancy. A 1 year screening mammogram is recommended. Based on the Tyrer Cuzick model (a risk assessment model) the patient's lifetime risk is 9.0% and her 10 year risk is 2.3%. According to the ACR, ACS, and NCCN guidelines, an annual breast MRI exam along with mammogram is recommended if the patient's lifetime risk is 20% or greater. This exam was interpreted at Station ID: [id number]. NOTE: For mammograms, a report in lay terms will be sent to the patient. Approximately 15% of breast malignancies will not be visualized mammographically. In the management of a palpable breast mass, a negative mammogram must not discourage biopsy of a clinically suspicious lesion. Electronically Signed By: Sulma palmer/erika:04/24/2024 11:14:58 letter sent: Normal Exam ACR BI-RADS Category 1: Negative
== END ==
PROVIDERS: PCP Family Medicine; Referring Provider Obstetrics & Gynecology; Visit Provider Obstetrics & Gynecology
DX: Z12.31 Encounter for screening mammogram for malignant neoplasm of breast (principal); Z80.3 Family history of malignant neoplasm of breast
CPT/HCPCS: 77063; 77067

== ENCOUNTER 2024-04-24 11:14 | Emergency (ER) | payer OTHER, MEDICAID, SELFPAY ==
[2024-04-24 11:22] VITALS: BP 108/64; PULSE 73; RESP 14; TEMP 37.1; O2SAT 97; BMI 16.7
--- NOTE | 2024-04-24 11:26 | DI.RAD.S_ITS ---
PROCEDURE: XR TIBIA FIBULA LT 2V INDICATIONS: known fx 6 weeks ago,getting worse TECHNIQUE: 2 views of the tibia and fibula were acquired. COMPARISON: [facility], CR, XR FOOT 3+ VIEWS LEFT, 04/18/2024, 8:15. FINDINGS: Bones: Unchanged appearance is previously questionable minimal distal fibular avulsion tip fracture. No suspicious bony lesions. Soft tissues: No suspicious soft tissue calcifications or masses. IMPRESSION: Unchanged appearance of previously identified questionable minimal distal fibular avulsion tip fracture. Dictated by: Rosalva Browning M.D. on 04/24/2024 at 13:22 Approved by: Rosalva Browning M.D. on 04/24/2024 at 13:24
--- NOTE | 2024-04-24 12:47 | ED_ITS ---
HPI - Extremity Injury (Lower) <Danay Gutiérrez PA-C - Last Filed: 04/24/24 14:03> General Chief Complaint: Extremity Injury, Lower Stated Complaint: L ankle pain Time Seen by Provider: 04/24/24 12:44 History of Present Illness HPI Narrative: Ms. Sanford is a pleasant 53-year-old female with a past medical history of Graves disease, hyperlipidemia, lumbar radiculopathy, 5 mm avulsion fracture of the distal tip of the left fibula 02/24/2024 who presents to the emergency department for left ankle and knee pain since her fracture. Patient states she followed with [facility] Dr. Han who recommended that she stop using walking boot and crutches last week. Patient states due to the pain in her ankle she is still unable to weightbear and has been using the walking boot and crutches occasionally still. States that now she is starting to develop pain in the knee and the left hip. She is has also noticed some swelling in the medial knee. States that the pain radiates from her ankle up into the leg. Pain is worse with weight-bearing. Reports she is frustrated because she was supposed to start physical therapy but they state they can not see her for 2 weeks. She denies any trauma to leg, fevers, chills, calf pain. Related Data Previous Rx's Medication Instructions Recorded lidocaine-prilocaine 2.5 %-2.5 % 1 applic topical ONCE #25 grams 07/15/22 topical cream timolol 0.5 % eye drops See Rx Instructions EYE-BOTH 06/26/23 .COMPLEX #5 mL buspirone 15 mg tablet 15 mg PO TID #270 tabs 07/24/23 albuterol sulfate 90 mcg/actuation 2 puff inhalation Q4-6H PRN asthma 07/31/23 aerosol inhaler #8.5 grams loratadine 10 mg tablet 10 mg PO DAILY PRN allergy 08/21/23 symptoms #90 tabs trazodone 150 mg tablet 150 mg PO BEDTIME #30 tabs 10/12/23 fluticasone propionate 110 2 puff inhalation BID #12 grams 12/25/23 mcg/actuation HFA aerosol inhaler clonazepam 1 mg tablet 1 mg PO BID PRN severe anxiety #60 01/22/24 tabs levothyroxine 50 mcg tablet 50 mcg PO DAILY #90 tabs 01/22/24 hydrocodone 5 mg-acetaminophen 325 1 tab PO Q8H PRN pain #10 tabs 02/24/24 mg tablet tramadol 50 mg tablet 50 mg PO TID PRN pain #30 tabs 02/27/24 sertraline 100 mg tablet 50 mg (1/2 x 100 mg) PO DAILY #135 03/13/24 tabs sumatriptan succinate 100 mg See Rx Instructions PO .COMPLEX #9 04/05/24 tablet (Imitrex) tabs Allergies Allergy/AdvReac Type Severity Reaction Status Date / Time lorazepam [From Ativan] AdvReac Severe Difficulty Verified 04/24/24 11:22 Breathing buspirone AdvReac Intermediate Agitated Verified 04/24/24 11:22 Review of Systems <Danay Gutiérrez PA-C - Last Filed: 04/24/24 14:03> Review of Systems ROS Unobtainable: All systems reviewed & are unremarkable except as noted in HPI and below Patient History <Danay Gutiérrez PA-C - Last Filed: 04/24/24 14:03> Medical History Asthma Foot pain (~2014) Hepatitis (~2001) Chicken pox (~1980) Anemia Ruptured tympanic membrane (~1979) History of recurrent ear infection (~1979) Anxiety, generalized Seasonal allergic rhinitis Graves disease (~2019) Menorrhagia Depression Surgical History Anesthesia History of adenoidectomy (~1975) History of hand surgery (~1985) Cyst (~2019) Previous section (~1987) Family History Mother Thyroid disorder Social History marital status: household members: spouse lives independently: Yes Smoking Status: Never smoker alcohol intake: never Smoking Status: Never smoker alcohol intake frequency: 0-2 drinks per day Exam <Danay Gutiérrez PA-C - Last Filed: 04/24/24 14:03> Narrative Exam Narrative: GENERAL: 53 year old patient appears stated age. Well-developed patient, in no acute distress. HEAD: Atraumatic. Normocephalic. EYES: Extraocular motions intact. No scleral icterus. No injection or drainage. ENT: Nose without bleeding, purulent drainage. NECK: Trachea midline. Cervical ROM intact. CARDIOVASCULAR: Regular rate and rhythm. RESPIRATORY: ?Nonlabored respirations. ?Speaking in clear, full sentences. ?Clear to auscultation. Breath sounds equal bilaterally. No wheezes, rales, or rhonchi. ? EXTREMITIES: Ankle brace and left lower extremity walking boot removed. Patient does have noticeable atrophy of the left lower leg muscles. Strong bilateral DP and PT pulses. Brisk capillary refill of left foot. Mild tenderness to palpation of left lateral malleolus and medial aspect of right knee. No reproducible laxity of left knee. No tenderness to palpation of lumbar spine or left hip. No skin changes of the left lower extremity. BACK: Nontender without deformity or crepitance. No flank tenderness. NEURO: AOx3. ?Clear speech. ?Moves all 4 extremities appropriately. SKIN: No rash or erythema of visible areas Initial Vital Signs Initial Vital Signs: Vital Signs Temperature 98.7 F 04/24/24 11:22 Pulse Rate 73 04/24/24 11:22 Respiratory Rate 14 04/24/24 11:22 Blood Pressure 108/64 04/24/24 11:22 Pulse Oximetry 97 04/24/24 11:22 Oxygen Delivery Method Room Air 04/24/24 11:22 <Silver Sanches DO - Last Filed: 04/24/24 14:20> Initial Vital Signs Initial Vital Signs: Vital Signs Temperature 98.7 F 04/24/24 11:22 Pulse Rate 73 04/24/24 11:22 Respiratory Rate 14 04/24/24 11:22 Blood Pressure 108/64 04/24/24 11:22 Pulse Oximetry 97 04/24/24 11:22 Oxygen Delivery Method Room Air 04/24/24 11:22 Course <Danay Gutiérrez PA-C - Last Filed: 04/24/24 14:03> Orders Ordered: ED Orders 04/24/24 11:26 XR tibia fibula LT 2V Stat Vital Signs Vital signs: Vital Signs - 8 hr 04/24/24 11:22 Temperature 98.7 F Pulse Rate 73 Respiratory Rate 14 Blood Pressure 108/64 Pulse Oximetry 97 Oxygen Delivery Method Room Air <Silver SanchesDO - Last Filed: 04/24/24 14:20> Orders Ordered: ED Orders 04/24/24 11:26 XR tibia fibula LT 2V Stat Vital Signs Vital signs: Vital Signs - 8 hr 04/24/24 11:22 Temperature 98.7 F Pulse Rate 73 Respiratory Rate 14 Blood Pressure 108/64 Pulse Oximetry 97 Oxygen Delivery Method Room Air MDM - Extremity Injury (Lower) <Danay Gutiérrez PA-C - Last Filed: 04/24/24 14:03> Imaging Data Left Tibia/Fibula: Radiologist's Impression: PROCEDURE: XR TIBIA FIBULA LT 2V INDICATIONS: known fx 6 weeks ago,getting worse TECHNIQUE: 2 views of the tibia and fibula were acquired. COMPARISON: [facility], CR, XR FOOT 3+ VIEWS LEFT, 04/18/2024, 8:15. FINDINGS: Bones: Unchanged appearance is previously questionable minimal distal fibular avulsion tip fracture. No suspicious bony lesions. Soft tissues: No suspicious soft tissue calcifications or masses. IMPRESSION: Unchanged appearance of previously identified questionable minimal distal fibular avulsion tip fracture. [facility] Narrative Medical decision making narrative: 53-year-old female with a past medical history of Graves disease, hyperlipidemia, lumbar radiculopathy, 5 mm avulsion fracture of the distal tip of the left fibula 02/24/2024 who presents to the emergency department for left ankle and knee pain since her fracture. Differential diagnosis includes but is not limited to fibula fracture, knee inj ury, hip injury, over compensation injury, overuse injury, muscle atrophy, compartment syndrome, ligament injury, etc. On exam patient is in no acute distress, nontoxic appearing, vital signs within normal limits. She is atrophy of the left lower leg and tenderness to palpation of the left lateral malleolus in the medial right knee. No overlying skin changes. Left lower leg neurovascularly intact, compartments soft. Suspect her knee and hip pain are likely related to overuse/continued use of heavy walking boot and patient would benefit from physical therapy. X-ray reveals no new acute bony abnormality. She does have unchanged parents previously identified questionable minimal distal fibular avulsion type fracture. Left knee Ryan wrap was applied for comfort. Encouraged patient to u se only left ankle splint as advised by her hole puncher strap Dr. Han. Recommended ibuprofen/Tylenol for pain or meloxicam/Tylenol for pain in addition to rice therapy. Discussed the importance of starting physical therapy with the patient. She is also doing home physical therapy videos which we discussed. Patient verbalized understanding of all information and is stable for discharge home. Discharge Plan Departure Patient Disposition: Home Clinical Impression: Avulsion fracture of distal end of fibula, Acute pain of left knee Instructions: DI for Knee Pain Activity Restrictions/Additional Instructions: Dear Ms. Sanford, Today you were evaluated for left ankle and knee pain. X-ray of your lower leg did not show any new injuries however we still do identify the distal fibular avulsion tip fracture. I would like you to avoid using the walking boot as much as possible to allow your lower leg to strengthen. Please use an Ryan wrap to support the left knee and continue wearing the splint of your left ankle. The sooner you were able to follow up with physical therapy, the better. You may use ibuprofen and Tylenol OR meloxicam and tylenol for pain. Please use RICE therapy for your pain in addition to ibuprofen/acetaminophen. Rest the painful area. Ice the area of pain/swelling for at least 15 minutes, 4x a day. Compress the area of swelling using a brace, wrap, or splint if applied. Elevate the painful or swollen extremity by supporting it above the level of the heart with pillows when sitting or laying. Please follow up with your primary care doctor within the next 2-3 days for ER follow-up. (If you do not have a PCP you can call [phone]. ?to schedule an appointment with an [facility] Primary Care Provider) IF YOU DEVELOP ANY NEW OR WORSENING SYMPTOMS, RETURN TO THE ER! Please read the attached instructions, they highlight more specific treatments and interventions for you at home. Thank you for letting me participate in your care, Danay Gutiérrez PA-C Prescriptions: No Action sertraline 100 mg tablet 50 mg PO DAILY Qty: 135 3RF timolol 0.5 % drops See Rx Instructions EYE-BOTH .COMPLEX Qty: 5 1RF Rx Instructions: Place one drop in each eye with the onset of migraine AGRCIA buspirone 15 mg tablet 15 mg PO TID Qty: 270 3RF Rx Instructions: Name brand Only (Teva) albuterol sulfate 90 mcg/actuation HFA aerosol inhaler 2 puff INHALATION Q4-6H PRN (Reason: asthma) Qty: 8.5 3RF loratadine 10 mg tablet 10 mg PO DAILY PRN (Reason: allergy symptoms) Qty: 90 1RF trazodone 150 mg tablet 150 mg PO BEDTIME Qty: 30 2RF fluticasone propionate 110 mcg/actuation HFA aerosol inhaler 2 puff inhalation BID Qty: 12 3RF levothyroxine 50 mcg tablet 50 mcg PO DAILY Qty: 90 1RF clonazepam 1 mg tablet 1 mg PO BID PRN (Reason: severe anxiety) Qty: 60 2RF tramadol 50 mg tablet 50 mg PO TID PRN (Reason: pain) Qty: 30 0RF sumatriptan succinate [Imitrex] 100 mg tablet See Rx Instructions PO .COMPLEX Qty: 9 3RF Rx Instructions: take 1 tab at onset of headache; if no relief, may repeat 1 tab after at least 2 hrs; max = 2 tabs/24 hrs PO hydrocodone-acetaminophen 5-325 mg tablet 1 tab PO Q8H PRN (Reason: pain) Qty: 10 0RF lidocaine-prilocaine 2.5-2.5 % cream 1 applic topical ONCE Qty: 25 0RF Rx Instructions: Applied to the forehead at least 1 hour before Botox injections Referrals: Sedrick Ferrari MD [Primary Care Provider] - Stand Alone Forms: Patient Portal/API/Survey ED Sign-out <Silver Sanches, DO - Last Filed: 04/24/24 14:20> [facility]: Dr Sanches Co-Sign Statement: I was available for consultation during this patient's emergency department visit. This chart is signed by myself for administrative purposes only. I did not have direct contact with this patient during this visit. They were seen independently by the APC.
== END 2024-04-24 14:10 | disposition home or self-care (01) ==
PROVIDERS: Emergency Provider Physician Assistant; PCP Family Medicine
DX: S82.832A Other fracture of upper and lower end of left fibula, initial encounter for closed fracture (principal); M25.562 Pain in left knee; W19.XXXA Unspecified fall, initial encounter
CPT/HCPCS: 73590; 99281; 99283

== ENCOUNTER 2024-05-15 14:10 | Emergency (ER) | payer OTHER, SELFPAY ==
[2024-05-15 14:14] VITALS: BP 141/76; PULSE 72; RESP 17; TEMP 37.2; O2SAT 99; BMI 17.0
[2024-05-15 14:15] VITALS: PULSE 78; O2SAT 98
--- NOTE | 2024-05-15 14:19 | DI.RAD.S_ITS ---
PROCEDURE: XR ANKLE LT MIN 3V INDICATIONS: injury TECHNIQUE: 3 views of the ankle were acquired. COMPARISON: [facility], CR, XR TIBIA FIBULA LT 2V, 04/24/2024, 11:30. [facility], CR, XR ANKLE LT MIN 3V, 02/24/2024, 13:05. FINDINGS: Bones: Bone fragment again seen at the distal fibular tip. Punctate fragment is also again seen at the distal medial malleolar tip. No acute displaced fracture that is new. No dislocation. Soft tissues: No suspicious calcifications. IMPRESSION: Nonacute bone fragments adjacent to the medial and lateral malleoli. No acute displaced fracture. If there is high concern for occult injury, consider repeat radiography or cross-sectional imaging. Dictated by: Ben Kennedy M.D. on 05/15/2024 at 13:37 Approved by: Ben Kennedy M.D. on 05/15/2024 at 13:39
--- NOTE | 2024-05-15 14:25 | ED_ITS ---
HPI - Wound/Laceration General Chief Complaint: Wound/Laceration Stated Complaint: Wrist Laceration Time Seen by Provider: 05/15/24 14:15 Source: patient and EMS Mode of arrival: EMS Limitations: no limitations History of Present Illness HPI narrative: Patient was a 54-year-old female here for evaluation of a laceration to her right wrist and discomfort to the left ankle. The cuts happened this morning when she states she fell through her window at home. She also twisted her left ankle during that time as well. Related Data Previous Rx's Medication Instructions Recorded lidocaine-prilocaine 2.5 %-2.5 % 1 applic topical ONCE #25 grams 07/15/22 topical cream timolol 0.5 % eye drops See Rx Instructions EYE-BOTH 06/26/23 .COMPLEX #5 mL buspirone 15 mg tablet 15 mg PO TID #270 tabs 07/24/23 albuterol sulfate 90 mcg/actuation 2 puff inhalation Q4-6H PRN asthma 07/31/23 aerosol inhaler #8.5 grams loratadine 10 mg tablet 10 mg PO DAILY PRN allergy 08/21/23 symptoms #90 tabs fluticasone propionate 110 2 puff inhalation BID #12 grams 12/25/23 mcg/actuation HFA aerosol inhaler levothyroxine 50 mcg tablet 50 mcg PO DAILY #90 tabs 01/22/24 hydrocodone 5 mg-acetaminophen 325 1 tab PO Q8H PRN pain #10 tabs 02/24/24 mg tablet sertraline 100 mg tablet 50 mg (1/2 x 100 mg) PO DAILY #135 03/13/24 tabs sumatriptan succinate 100 mg See Rx Instructions PO .COMPLEX #9 04/05/24 tablet (Imitrex) tabs trazodone 150 mg tablet 150 mg PO BEDTIME #30 tabs 04/24/24 clonazepam 1 mg tablet 1 mg PO BID PRN severe anxiety #60 04/26/24 tabs tramadol 50 mg tablet 50 mg PO TID PRN pain #30 tabs 05/08/24 Allergies Allergy/AdvReac Type Severity Reaction Status Date / Time lorazepam [From Ativan] AdvReac Severe Difficulty Verified 04/24/24 11:22 Breathing buspirone AdvReac Intermediate Agitated Verified 04/24/24 11:22 Review of Systems Musculoskeletal Musculoskeletal: Reports system reviewed and no additional complaints, except as documented Integumentary/Breasts Skin/Breast: Reports system reviewed and no additional complaints, except as documented Patient History Medical History Asthma Foot pain (~2014) Hepatitis (~2001) Chicken pox (~1980) Anemia Ruptured tympanic membrane (~1979) History of recurrent ear infection (~1979) Anxiety, generalized Seasonal allergic rhinitis Graves disease (~2019) Menorrhagia Depression Surgical History Anesthesia History of adenoidectomy (~1975) History of hand surgery (~1985) Cyst (~2019) Previous section (~1987) Family History Mother Thyroid disorder Social History marital status: household members: spouse lives independently: Yes Smoking Status: Never smoker alcohol intake: never Smoking Status: Never smoker alcohol intake frequency: 0-2 drinks per day Exam Initial Vital Signs Initial Vital Signs: Vital Signs Temperature 99.0 F 05/15/24 14:14 Pulse Rate 72 05/15/24 14:14 Respiratory Rate 17 05/15/24 14:14 Blood Pressure 141/76 H 05/15/24 14:14 Pulse Oximetry 99 05/15/24 14:14 Oxygen Delivery Method Room Air 05/15/24 14:14 Skin Other: Superficial lacerations to the radial aspect of the right arm volar aspect. No active bleeding. Extrem Other: Discomfort to palpation lateral aspect of the left ankle. Achilles tendon is intact. Course Orders Ordered: ED Orders 05/15/24 14:19 XR ankle LT min 3V Stat Discontinued Medications Bacitracin (Bacitracin Oint 0.9 Gm Pckt) 1 applic TOP NOW ONE Stop: 05/15/24 14:38 Vital Signs Vital signs: Vital Signs - 8 hr 05/15/24 14:14 Temperature 99.0 F Pulse Rate 72 Respiratory Rate 17 Blood Pressure 141/76 H Pulse Oximetry 99 Oxygen Delivery Method Room Air MDM - Wound/Laceration Imaging Data Extremity x-ray #1: Radiologist's Impression: PROCEDURE: XR ANKLE LT MIN 3V INDICATIONS: injury TECHNIQUE: 3 views of the ankle were acquired. COMPARISON: [facility], CR, XR TIBIA FIBULA LT 2V, 04/24/2024, 11:30. [facility], CR, XR ANKLE LT MIN 3V, 02/24/2024, 13:05. FINDINGS: Bones: Bone fragment again seen at the distal fibular tip. Punctate fragment is also again seen at the distal medial malleolar tip. No acute displaced fracture that is new. No dislocation. Soft tissues: No suspicious calcifications. IMPRESSION: Nonacute bone fragments adjacent to the medial and lateral malleoli. No acute displaced fracture. If there is high concern for occult injury, consider repeat radiography or cross-sectional imaging. MDM Narrative Medical decision making narrative: Patient with superficial abrasions to the right wrist. No foreign body. Two Steri-Strips were placed however this most likely was not needed. X-ray shows no acute pathology to the left ankle. Will discharge patient home with return precautions. Discharge Plan Departure Patient Disposition: Home Clinical Impression: Ankle sprain, Abrasion of skin Instructions: How To Perform RICE (Rest, Ice, Compress, Elevate), DI for Abrasion Activity Restrictions/Additional Instructions: No fractures were noted on the x-rays to your left ankle. You can walk on your leg as tolerated. Ice will be helpful. Recommend topical antibiotic ointments over the abrasions/scratches to her right wrist. Return to the emergency department for new symptoms. Prescriptions: No Action sertraline 100 mg tablet 50 mg PO DAILY Qty: 135 3RF trazodone 150 mg tablet 150 mg PO BEDTIME Qty: 30 2RF timolol 0.5 % drops See Rx Instructions EYE-BOTH .COMPLEX Qty: 5 1RF Rx Instructions: Place one drop in each eye with the onset of migraine GARCIA buspirone 15 mg tablet 15 mg PO TID Qty: 270 3RF Rx Instructions: Name brand Only (Teva) albuterol sulfate 90 mcg/actuation HFA aerosol inhaler 2 puff INHALATION Q4-6H PRN (Reason: asthma) Qty: 8.5 3RF loratadine 10 mg tablet 10 mg PO DAILY PRN (Reason: allergy symptoms) Qty: 90 1RF fluticasone propionate 110 mcg/actuation HFA aerosol inhaler 2 puff inhalation BID Qty: 12 3RF levothyroxine 50 mcg tablet 50 mcg PO DAILY Qty: 90 1RF sumatriptan succinate [Imitrex] 100 mg tablet See Rx Instructions PO .COMPLEX Qty: 9 3RF Rx Instructions: take 1 tab at onset of headache; if no relief, may repeat 1 tab after at least 2 hrs; max = 2 tabs/24 hrs PO clonazepam 1 mg tablet 1 mg PO BID PRN (Reason: severe anxiety) Qty: 60 2RF tramadol 50 mg tablet 50 mg PO TID PRN (Reason: pain) Qty: 30 0RF hydrocodone-acetaminophen 5-325 mg tablet 1 tab PO Q8H PRN (Reason: pain) Qty: 10 0RF lidocaine-prilocaine 2.5-2.5 % cream 1 applic topical ONCE Qty: 25 0RF Rx Instructions: Applied to the forehead at least 1 hour before Botox injections Referrals: Sedrick Ferrari MD [Primary Care Provider] - Stand Alone Forms: Patient Portal/API/Survey
[2024-05-15 14:30] VITALS: PULSE 74; O2SAT 97
[2024-05-15 14:31] VITALS: BP 139/76; PULSE 74; O2SAT 97
[2024-05-15 15:00] VITALS: BP 135/67; PULSE 87; O2SAT 99
--- NOTE | 2024-05-15 16:14 | PC.NURSE ---
1530 Superficial abrasion on right wrist. Pt's wound treated with steri strips, bacitracin and XL bandaid by rn. Pt to dc home and unhappy with care she received at [facility] ED stating that ems wrapped this better than you and I was told by EMS that ED would help me get back to the [facility] and that is absolutely not true. This is a huge waste of my time. RN offered to rewrap abrasions with gauze and coban but pt refused wound treatment option. Offered to provide a cab voucher to [facility]. Pt called for cab and yelled at hazardous materials driver and hung up on hazardous materials driver without scheduling pickler helper. RN called [employer] and pt began yelling and threatening RN. Prashant, the cotton seed culler of [employer], refused to take pt due to volatile, aggressive and threatening behavior of pt. Pt then got in RN's face and started yelling that she has PTSD and does not need anyone's shit. RN offered to help pt navigate [place] bus route and speak with ASSISTANT BROKER about getting pt a bus pas to [facility]. Pt began shoving phone in RN's face and demanding that she talked to her doctor. RN asked pt to stop pushing phone into face and declined to speak to pt's doctor. Pt continued to be physically and verablly agressive and yelling in hallways causing significant disruption to the care and comfort of other pt's in dept at the time. Pt asked to leave department otherwise police and security would be called. Pt exited department with steady gait and bandaged wound to lobby while continuing to yell profanities. Security notified of pt status.
== END 2024-05-15 15:30 | disposition home or self-care (01) ==
PROVIDERS: Emergency Provider Emergency Medicine; PCP Family Medicine
DX: S93.402A Sprain of unspecified ligament of left ankle, initial encounter (principal); S60.811A Abrasion of right wrist, initial encounter; W17.89XA Other fall from one level to another, initial encounter; X50.1XXA Overexertion from prolonged static or awkward postures, initial encounter
CPT/HCPCS: 73610; 99281; 99283

== ENCOUNTER 2024-09-05 00:07 | Emergency (ER) | payer OTHER, SELFPAY ==
--- NOTE | 2024-09-05 00:11 | DI.RAD.S_ITS ---
PROCEDURE: XR CHEST 1V INDICATIONS: difficulty breathing TECHNIQUE: One view of the chest was acquired. COMPARISON: [facility], CR, XR CHEST 1V, 05/18/2023, 12:27. FINDINGS: Surgical changes and devices: None. Lungs and pleura: Lungs are clear. No pleural effusions or pneumothorax. Mediastinum: Mediastinal contours appear normal. Heart size is normal. Bones and chest wall: No suspicious bony lesions. Overlying soft tissues appear unremarkable. IMPRESSION: No acute cardiopulmonary abnormality is seen. Dictated by: Jose Carlos Armenta M.D. on 09/05/2024 at 0:45 Approved by: Jose Carlos Armenta M.D. on 09/05/2024 at 0:45
--- NOTE | 2024-09-05 00:14 | EKG_ITS ---
[place] [id number] [address] [place] [id number] Test Date: 2024-09-05 Pat Name: Mimi Sanford Department: [facility] Room: Gender: Female Manuscript Reader: BILLIE : 1970 Requested By: Order Number: [id number] Reading MD: Edgar Clark MD Measurements Intervals [place] Rate: 73 P: 71 MS: 164 QRS: 57 QRSD: 80 T: 58 QT: 412 QTc: 453 Interpretive Statements Normal sinus rhythm Electronically Signed On 09-05-2024 7:32:31 PDT by Edgar Clakr MD
--- NOTE | 2024-09-05 00:23 | ED_ITS ---
HPI - General Adult General Chief complaint: Unresponsive Stated complaint: chest pain/fainted 15 min Time Seen by Provider: 09/05/24 00:16 Source: family Mode of arrival: Family Vehicle History of Present Illness HPI narrative: 54-year-old female history of asthma anxiety insomnia recently [place]2 [place] flight presenting with chest pain shortness of breath has not taking any of her anxiety meds prior to arrival. Pt's was at bedside the rest of the information was taken from him. Other than what is stated 14 point review of system is negative. Related Data Previous Rx's Medication Instructions Recorded lidocaine-prilocaine 2.5 %-2.5 % 1 applic topical ONCE #25 grams 07/15/22 topical cream timolol 0.5 % eye drops See Rx Instructions EYE-BOTH 06/26/23 .COMPLEX #5 mL albuterol sulfate 90 mcg/actuation 2 puff inhalation Q4-6H PRN asthma 07/31/23 aerosol inhaler #8.5 grams fluticasone propionate 110 2 puff inhalation BID #12 grams 12/25/23 mcg/actuation HFA aerosol inhaler hydrocodone 5 mg-acetaminophen 325 1 tab PO Q8H PRN pain #10 tabs 02/24/24 mg tablet clonazepam 1 mg tablet 1 mg PO BID PRN severe anxiety #60 04/26/24 tabs tramadol 50 mg tablet 50 mg PO TID PRN pain #30 tabs 05/08/24 sertraline 100 mg tablet 100 mg PO DAILY #180 tabs 05/21/24 sumatriptan succinate 100 mg See Rx Instructions PO .COMPLEX #9 05/23/24 tablet (Imitrex) tabs buspirone 15 mg tablet 15 mg PO TID #270 tabs 07/02/24 trazodone 150 mg tablet 75 mg (1/2 x 150 mg) PO BEDTIME 07/02/24 #45 tabs loratadine 10 mg tablet 10 mg PO DAILY PRN allergy 07/10/24 symptoms #90 tabs levothyroxine 50 mcg tablet 50 mcg PO DAILY #90 tabs 07/31/24 Allergies Allergy/AdvReac Type Severity Reaction Status Date / Time lorazepam [From Ativan] AdvReac Severe Difficulty Verified 09/05/24 00:18 Breathing buspirone AdvReac Intermediate Agitated Verified 09/05/24 00:18 Review of Systems Review of Systems ROS Unobtainable: All systems reviewed & are unremarkable except as noted in HPI and below Patient History Medical History Asthma Foot pain (~2014) Hepatitis (~2001) Chicken pox (~1980) Anemia Ruptured tympanic membrane (~1979) History of recurrent ear infection (~1979) Anxiety, generalized Seasonal allergic rhinitis Graves disease (~2019) Menorrhagia Depression Surgical History Anesthesia History of adenoidectomy (~1975) History of hand surgery (~1985) Cyst (~2019) Previous section (~1987) Family History Mother Thyroid disorder Social History marital status: household members: spouse lives independently: Yes Smoking Status: Never smoker alcohol intake: never Smoking Status: Never smoker alcohol intake frequency: 0-2 drinks per day Exam Narrative Exam Narrative: GENERAL: [54] year old patient appears stated age. Well-developed patient, in mild distress. Anxious appearing HEAD: Atraumatic. Normocephalic. EYES: Pupils equal round and reactive. Extraocular motions intact. No scleral icterus. No injection or drainage. ENT: Nose without bleeding, purulent drainage. Throat without erythema, tonsillar hypertrophy or exudate. Airway patent. NECK: Trachea midline. Non tender CARDIOVASCULAR: Regular rate and rhythm without murmurs, gallops, or rubs. RESPIRATORY: Clear to auscultation. Breath sounds equal bilaterally. No wheezes, rales, or rhonchi. GASTROINTESTINAL: Abdomen soft, non-tender, nondistended. EXTREMITIES: No edema or joint tenderness. BACK: Nontender without deformity or crepitance. No flank tenderness. NEURO: AOx3. SKIN: No rash or erythema of visible areas Initial Vital Signs Initial Vital Signs: Vital Signs Temperature 98.5 F 09/05/24 00:35 Pulse Rate 80 09/05/24 00:35 Respiratory Rate 14 09/05/24 00:35 Blood Pressure 188/86 H 09/05/24 00:35 Pulse Oximetry 100 09/05/24 00:35 Oxygen Delivery Method Room Air 09/05/24 00:35 Scores HEART Score Heart Score history: Slightly Suspicious Heart Score EKG: Normal Heart Score Age: 45-64 years old Heart Score risk factors: No known risk factors Heart Score troponin: < or = to normal limit Heart Score Total: 1 Course Orders Ordered: ED Orders 09/05/24 00:09 EKG-12 Lead Stat 09/05/24 00:11 CXR [XR chest 1V] Stat 09/05/24 00:20 Complete Blood Count AUTO DIFF Stat Comprehensive Metabolic Panel Stat Lipase Stat Magnesium Stat NT-proBNP (BNP-Adult 18+) Stat PTT Partial Thromboplastin Sandro Stat Prothrombin Time INR Stat Troponin & CK Cardiac Panel Stat 09/05/24 00:25 EKG-12 Lead Stat 09/05/24 00:27 CT angio chest PE protocol Stat 09/05/24 01:51 Urinalysis and Microscopic Stat urine tox [Urine Drug Screen, Rapid] Stat 09/05/24 02:30 Trop I [Troponin I] Stat Discontinued Medications Diphenhydramine HCl (Diphenhydramine 50 Mg/Ml Vial) 50 mg IV NOW ONE Stop: 09/05/24 00:35 Last Admin: 09/05/24 00:38 Dose: 50 mg Documented By: KIERAN Vital Signs Vital signs: Vital Signs - 8 hr 09/05/24 00:35 09/05/24 00:53 09/05/24 01:00 Temperature 98.5 F Pulse Rate 80 68 68 Respiratory Rate 14 18 Blood Pressure 188/86 H Pulse Oximetry 100 99 100 Oxygen Delivery Method Room Air 09/05/24 01:30 09/05/24 02:00 Temperature Pulse Rate 62 75 Respiratory Rate 20 54 H Blood Pressure Pulse Oximetry 99 99 Oxygen Delivery Method Medical Decision Making Lab Data 09/05/24 00:20 09/05/24 00:20 Labs: Lab Results 09/05/24 09/05/24 09/05/24 Range/Units 00:20 01:51 01:51 WBC 7.1 (4.5-11.0) X10^3/uL RBC 4.78 (4.0-5.2) X10^6/uL Hgb 14.9 (12.0-16.0) g/dL Hct 43.5 (36-46) % MCV 91.1 (80-100) fL MCH 31.1 (26-34) PG MCHC 34.2 (30-36) % RDW 13.5 (11.6-14.8) % Plt Count 317 (150-400) X10^3/uL Neut % (Auto) 59.0 (50-75) % Lymph % (Auto) 28.3 (25-40) % Saline % (Auto) 8.1 (3-14) % Eos % (Auto) 2.5 (2-4) % Baso % (Auto) 2.1 H (0-2) % Neut # (Auto) 4200 (2809-6302) /uL Lymph # (Auto) 2000 (9355-9993) /uL Saline # (Auto) 600 (0-900) /uL Eos # (Auto) 200 (0-450) /uL Baso # (Auto) 100 (0-100) /uL PT 11.3 (9.4-12.5) SECONDS INR 1.0 (0.9-1.3) APTT 36 (25.1-36.5) SECONDS Sodium 139 (137-145) mmol/L Potassium 3.8 (3.4-5.1) mmol/L Chloride 106 (98-107) mmol/L Carbon Dioxide 26 (22-32) mmol/L BUN 9 (7-17) mg/dL Creatinine 0.62 (0.52-1.04) mg/dL Estimated GFR > 60 (>60) mL/min BUN/Creatinine Ratio 14.5 (6-22) Glucose 116 H (70-99) mg/dL Calcium 9.6 (8.4-10.2) mg/dL Magnesium 1.8 (1.6-2.3) mg/dL Total Bilirubin 0.7 (0.2-1.3) mg/dL AST 37 H (14-36) IU/L ALT 21 (<35) IU/L Alkaline Phosphatase 71 (38-126) U/L Total Creatine Kinase 196 H (30-135) U/L Troponin I < 0.012 (0.01-0.034) ng/mL NT-Pro-B Natriuret Pep 103 (<125) pg/mL Total Protein 7.4 (6.3-8.2) g/dL Albumin 4.5 (3.5-5.0) g/dL Globulin 2.9 (1.7-4.1) g/dL Albumin/Globulin Ratio 1.6 (1.0-2.8) Lipase 121 (23-300) U/L Urine Color Yellow Urine Appearance Clear Urine pH 7.5 TNP (4.5-8.0) Ur Specific [place] 1.010 (1.000-1.035) Urine Protein Negative (Negative) Urine Glucose (UA) Negative (Negative) g/dL Urine Ketones Negative (NEGATIVE) Urine Occult Blood Negative (Negative) Urine Nitrate Negative (Negative) Urine Bilirubin Negative (NEGATIVE) Urine Urobilinogen 0.2 (0.2) E.U./dL Ur Leukocyte Esterase Negative (NEGATIVE) Urine RBC None seen (0-5/HPF) Urine WBC None seen (0-5/HPF) Ur Squamous Epith Cells None seen D (0-5/HPF) Urine Bacteria None seen (None) Ur Culture Indicated? Cult not indicated Vol Urine Centrifuged 10ml (spun) U Opiates 300ng/mL cut Negative (Negative) Ur Oxycodone Screen Negative (Negative) Urine Methadone Screen Negative (Negative) Ur Barbiturates Screen Negative (Negative) U Tricyclic Antidepress Negative (Negative) Ur Phencyclidine Scrn Negative (Negative) Ur Amphetamines Screen Negative (Negative) U Methamphetamines Scrn Negative (Negative) Ur MDMA Scrn (Ecstasy) Negative (Negative) U Benzodiazepines Scrn Negative (Negative) Urine Cocaine Screen Negative (Negative) U Marijuana (THC) Screen Positive H (Negative) Urine Specific [place] TNP Ur Creatinine TNP Point of Care Testing Glucose POC 120 Point of care testing: Point of Care Testing Glucose POC 120 Imaging Data Chest x-ray: Radiologist's Impression: [address] [address] XRay Report Signed Patient: Mimi Sanford MR#: [id number] : 1970 Acct:[id number] Age/Sex: 54 / F Date of Service: 09/05/24 Loc: ED Accession Number: [id number] Procedure: XR chest 1V Ordering Provider: Edgar Romo D.O. PROCEDURE: XR CHEST 1V INDICATIONS: difficulty breathing TECHNIQUE: One view of the chest was acquired. COMPARISON: [facility], [facility], XR CHEST 1V, 05/18/2023, 12:27. FINDINGS: Surgical changes and devices: None. Lungs and pleura: Lungs are clear. No pleural effusions or pneumothorax. Mediastinum: Mediastinal contours appear normal. Heart size is normal. Bones and chest wall: No suspicious bony lesions. Overlying soft tissues appear unremarkable. IMPRESSION: No acute cardiopulmonary abnormality is seen. Dictated by: Jose Carlos Armenta M.D. on 09/05/2024 at 0:45 Approved by: Jose Carlos Armenta M.D. on 09/05/2024 at 0:45 CT scan - chest: Radiologist's Impression: [place] [address] CT Scan Report Signed Patient: Mimi Sanford MR#: [id number] : 1970 Acct:[id number] Age/Sex: 54 / F Date of Service: 09/05/24 Loc: ED Accession Number: [id number] Procedure: CT angio chest PE protocol Ordering Provider: Edgar Romo D.O. PROCEDURE: CT ANGIO CHEST PE PROTOCOL INDICATIONS: chest pain / sob TECHNIQUE: After the administration of intravenous contrast, 2 mm thick sections acquired from the pulmonary apices to the posterior costophrenic angles. 3-dimensional maximum intensity projection (MIP) coronal and sagittal reformats were then acquired through the thorax. For radiation dose reduction, the following was used: automated exposure control, adjustment of mA and/or kV according to patient size. COMPARISON: None. FINDINGS: Image quality: Diagnostic. Pulmonary arteries: Pulmonary arteries are normal in size, and demonstrate no intraluminal filling defects to suggest central pulmonary embolism. Lower Neck: No enlarged lymph nodes. Thyroid: No thyroid nodules which require sonographic follow up, per consensus guidelines. Axillae: No enlarged lymph nodes. Chest Wall: Unremarkable. Bones: Unremarkable. Lungs and Pleura: No pneumothorax or pleural effusions. No consolidation or suspicious nodules. Heart: Heart size is normal. No pericardial effusion. Thoracic Vessels: No aortic aneurysm. Mediastinum and Rita: No enlarged lymph nodes. Esophagus: No wall thickening. No hiatal hernia. Upper Abdomen: Visualized upper abdomen solid organs and bowel loops appear normal. IMPRESSION: No pulmonary embolus. No acute cardiopulmonary process. Dictated by: Jose Carlos Armenta M.D. on 09/05/2024 at 1:05 Approved by: Jose Carlos Armenta M.D. on 09/05/2024 at 1:07 ECG Data Interpretation: NSR MT 164 QRS [address]-t wave change Change from 05/18/23 MDM Narrative Medical decision making narrative: All lab work EKG chest x-ray CTA all reviewed. Patient given Benadryl here 50mg IV x 1. On reassessment patient was awake alert oriented GCS of 15 nonfocal neuro exam and is no longer having chest pain and did not want the 2nd set of troponin drawn. Pt wanted to leave and go home. She accused staff and myself of being rude and disrespectful to her. Differential diagnosis includes anxiety, PTSD, substance abuse, STEMI, NSTEMI, and PE. Heart score 1 Discharge Plan Departure Patient Disposition: Home Clinical Impression: Chest pain Qualifiers: Chest pain type: chest pain on breathing Qualified Code(s): R07.1 - Chest pain on breathing Instructions: DI for Chest Pain Activity Restrictions/Additional Instructions: Return with new or worsening symptoms. Follow up with PCP in 1-2 days for re- evaluation. Prescriptions: No Action sertraline 100 mg tablet 100 mg PO DAILY Qty: 180 3RF trazodone 150 mg tablet 75 mg PO BEDTIME Qty: 45 3RF buspirone 15 mg tablet 15 mg PO TID Qty: 270 3RF Rx Instructions: Name brand Only (Teva) timolol 0.5 % drops See Rx Instructions EYE-BOTH .COMPLEX Qty: 5 1RF Rx Instructions: Place one drop in each eye with the onset of migraine GARCIA albuterol sulfate 90 mcg/actuation HFA aerosol inhaler 2 puff INHALATION Q4-6H PRN (Reason: asthma) Qty: 8.5 3RF fluticasone propionate 110 mcg/actuation HFA aerosol inhaler 2 puff inhalation BID Qty: 12 3RF clonazepam 1 mg tablet 1 mg PO BID PRN (Reason: severe anxiety) Qty: 60 2RF tramadol 50 mg tablet 50 mg PO TID PRN (Reason: pain) Qty: 30 0RF sumatriptan succinate [Imitrex] 100 mg tablet See Rx Instructions PO .COMPLEX Qty: 9 3RF Rx Instructions: take 1 tab at onset of headache; if no relief, may repeat 1 tab after at least 2 hrs; max = 2 tabs/24 hrs PO loratadine 10 mg tablet 10 mg PO DAILY PRN (Reason: allergy symptoms) Qty: 90 3RF levothyroxine 50 mcg tablet 50 mcg PO DAILY Qty: 90 1RF hydrocodone-acetaminophen 5-325 mg tablet 1 tab PO Q8H PRN (Reason: pain) Qty: 10 0RF lidocaine-prilocaine 2.5-2.5 % cream 1 applic topical ONCE Qty: 25 0RF Rx Instructions: Applied to the forehead at least 1 hour before Botox injections Referrals: Sedrick Ferrari MD [Primary Care Provider] - Stand Alone Forms: Naloxone Standing Order BUD, Patient Portal/API/Survey
--- NOTE | 2024-09-05 00:27 | DI.CT.S_ITS ---
PROCEDURE: CT ANGIO CHEST PE PROTOCOL INDICATIONS: chest pain / sob TECHNIQUE: After the administration of intravenous contrast, 2 mm thick sections acquired from the pulmonary apices to the posterior costophrenic angles. 3-dimensional maximum intensity projection (MIP) coronal and sagittal reformats were then acquired through the thorax. For radiation dose reduction, the following was used: automated exposure control, adjustment of mA and/or kV according to patient size. COMPARISON: None. FINDINGS: Image quality: Diagnostic. Pulmonary arteries: Pulmonary arteries are normal in size, and demonstrate no intraluminal filling defects to suggest central pulmonary embolism. Lower Neck: No enlarged lymph nodes. Thyroid: No thyroid nodules which require sonographic follow up, per consensus guidelines. Axillae: No enlarged lymph nodes. Chest Wall: Unremarkable. Bones: Unremarkable. Lungs and Pleura: No pneumothorax or pleural effusions. No consolidation or suspicious nodules. Heart: Heart size is normal. No pericardial effusion. Thoracic Vessels: No aortic aneurysm. Mediastinum and Rita: No enlarged lymph nodes. Esophagus: No wall thickening. No hiatal hernia. Upper Abdomen: Visualized upper abdomen solid organs and bowel loops appear normal. IMPRESSION: No pulmonary embolus. No acute cardiopulmonary process. Dictated by: Jose Carlos Armenta M.D. on 09/05/2024 at 1:05 Approved by: Jose Carlos Armenta M.D. on 09/05/2024 at 1:07
--- NOTE | 2024-09-05 00:29 | PC.NURSE ---
per , pt c/o not feeling well and then slumped down in the car, pt resp even and unlabored upon arrival O2 sat at 100%, pt whispers she has asthma, pt shaking on the bed, answering some questions, speech is clear when she does answer but she doesn't speak louder than a whisper, pt limbs trembling, does admit pt does have anxiety and sometimes responds like this but not as bad
[2024-09-05 00:35] VITALS: BP 188/86; PULSE 80; RESP 14; TEMP 36.9; O2SAT 100
[2024-09-05 00:37] LABS: Add Manual Diff / Slide Review NO; Basophils Absolute Auto 100 /uL (0-100); Basophils Percent Auto 2.1 % (0-2); Eosinophils Absolute Auto 200 /uL (0-450); Eosinophils Percent Auto 2.5 % (2-4); Hematocrit 43.5 % (36-46); Hemoglobin 14.9 g/dL (12.0-16.0); Lymphocytes Absolute Auto 2000 /uL (1100-4500); Lymphocytes Percent Auto 28.3 % (25-40); Mean Corpuscular HGB Conc 34.2 % (30-36); Mean Corpuscular Hemoglobin 31.1 PG (26-34); Mean Corpuscular Volume 91.1 fL (80-100); Monocytes Absolute Auto 600 /uL (0-900); Monocytes Percent Auto 8.1 % (3-14); Neutrophils Absolute Auto 4200 /uL (1500-7000); Platelet Count 317 X10^3/uL (150-400); Red Blood Cell Count 4.78 X10^6/uL (4.0-5.2); Red Cell Distribution Width 13.5 % (11.6-14.8); White Blood Cell Count 7.1 X10^3/uL (4.5-11.0)
[2024-09-05] MEDS: diphenhydrAMINE 50 MG/ML VIAL IV (00:38)
[2024-09-05 00:40] LABS: Prothrombin Time 11.3 SECONDS (9.4-12.5)
[2024-09-05 00:43] LABS: PTT Partial Thromboplastin Tim 36 SECONDS (25.1-36.5)
[2024-09-05 00:49] LABS: Alanine Aminotransferase 21 IU/L (<35); Albumin 4.5 g/dL (3.5-5.0); Albumin Globulin Ratio 1.6 (1.0-2.8); Alkaline Phosphatase 71 U/L (38-126); Aspartate Aminotransferase 37 IU/L (14-36); BUN Creatinine Ratio 14.5 (6-22); Bilirubin Total 0.7 mg/dL (0.2-1.3); Blood Urea Nitrogen 9 mg/dL (7-17); Calcium 9.6 mg/dL (8.4-10.2); Carbon Dioxide 26 mmol/L (22-32); Chloride 106 mmol/L (98-107); Creatine Kinase 196 U/L (30-135); Estimated Glomerular Filt Rate > 60 mL/min (>60); Globulin 2.9 g/dL (1.7-4.1); Glucose 116 mg/dL (70-99); HEMOLYSIS < 15 (0-50); Lipase 121 U/L (23-300); Magnesium 1.8 mg/dL (1.6-2.3); Potassium 3.8 mmol/L (3.4-5.1); Sodium 139 mmol/L (137-145); Total Protein 7.4 g/dL (6.3-8.2)
[2024-09-05 00:53] VITALS: PULSE 68; O2SAT 99
[2024-09-05 01:00] VITALS: PULSE 68; RESP 18; O2SAT 100
[2024-09-05 01:00] LABS: NT-proBNP (BNP-Adult 18+) 103 pg/mL (<125); Troponin I < 0.012 ng/mL (0.01-0.034)
[2024-09-05 01:30] VITALS: PULSE 62; RESP 20; O2SAT 99
--- NOTE | 2024-09-05 01:56 | PC.NURSE ---
When this pt came in she was unresponsive and myself and another coworker had to physically lift her out of the car onto a gurney. I was asked to assist this pt to the restroom and obtain a urine sample, so i went in the room to see if she wanted to try walking or if a bed snell was a better option. She was slow to respond but said she wanted to get up to the bathroom and that she really had to go. I got her disconnected from the monitor and asked her to swing her legs towards me and sit up to stand. she did not move or respond so I said we could do the bedpan and she told me that I was being rude, I told her I was just trying to help but I was not able to carry her to the bathroom. She said you need to change your attitude your being a bitch, fuck you and proceeded to stick her middle finger in my face as close as she could. I told her she did not need to speak to me that way and left the room to notify the nurse.
[2024-09-05 02:00] VITALS: PULSE 75; RESP 54; O2SAT 99
[2024-09-05 02:05] LABS: Appearance Urine UA CLEAR; Bilirubin Urine UA NEGATIVE (NEGATIVE); Color Urine UA YELLOW; Glucose Urine UA NEGATIVE (Negative); Ketones Urine UA NEGATIVE (NEGATIVE); Leukocyte Esterase Urine UA NEGATIVE (NEGATIVE); Nitrite Urine UA NEGATIVE (Negative); Occult Blood Urine UA NEGATIVE (Negative); Protein Urine UA NEGATIVE (Negative); Urobilinogen Urine UA 0.2 E.U./dL (0.2)
[2024-09-05 02:07] LABS: pH Urine UA 7.5 (4.5-8.0)
[2024-09-05 02:11] LABS: Bacteria Urine None Seen; Culture Indicated Urine Cult Not Indicated; RBC Urine None Seen (0-5/HPF); Squamous Epithelial Cell Urine None Seen (0-5/HPF); Urine Volume 10mL (spun); WBC Urine None Seen (0-5/HPF)
[2024-09-05 02:12] LABS: Urine Amphetamines Negative (Negative); Urine Barbiturates Negative (Negative); Urine Benzodiazepines Negative (Negative); Urine Cocaine Negative (Negative); Urine MDMA Negative (Negative); Urine Methadone Negative (Negative); Urine Opiates Negative (Negative); Urine Oxycodone Negative (Negative); Urine Phencyclidine Negative (Negative); Urine THC Positive (Negative); Urine Tricyclic Antidepressant Negative (Negative)
--- NOTE | 2024-09-05 02:30 | PC.NURSE ---
pt wanting to leave, awake stating she doesn't like being at the hospital wanting to leave, refusing repeat labs and any further vs Dr Romo informed
== END 2024-09-05 03:17 | disposition home or self-care (01) ==
PROVIDERS: Emergency Provider Family Medicine; PCP Family Medicine
DX: R07.1 Chest pain on breathing (principal); R06.02 Shortness of breath
CPT/HCPCS: 36415; 71045; 71275; 80053; 80305; 81001; 82550; 82962; 83690; 83735; 83880; 84484; 85025; 85610; 85730; 93005; 93010; 96374; 99284; J1200; Q9967